=== PATIENT | female | born 1950 | race Caucasian/White ===

== ENCOUNTER → 2017-08-31 10:00 | Outpatient (CLI) | payer MEDICARE, OTHER, SELFPAY | PROVIDERS: Family Provider Family Medicine; PCP Family Medicine; Visit Provider Psychiatry & Neurology Neurology | DX: G47.33 Obstructive sleep apnea (adult) (pediatric) (principal) | CPT/HCPCS: 95806 ==

== ENCOUNTER → 2017-09-22 20:08 | Outpatient (CLI) | payer MEDICARE, OTHER, SELFPAY | PROVIDERS: Family Provider Family Medicine; PCP Family Medicine; Visit Provider Psychiatry & Neurology Neurology | DX: G47.33 Obstructive sleep apnea (adult) (pediatric) (principal) | CPT/HCPCS: 95811 ==

== ENCOUNTER → 2018-02-01 08:07 | Outpatient (CLI) | payer MEDICARE, OTHER, SELFPAY ==
[2018-02-01 13:23] LABS: Anion Gap 7 (5-15); BUN 20 mg/dL (7-18); Chloride 104 mmol/L (98-107); Cholesterol 175 mg/dL (200); Creatinine, Serum 0.87 mg/dL (0.55-1.02); EST Glomerular Filtration Rate 69 mL/min (>60); Est Glom Filt Rate - Afr Amer 84 mL/min (>60); Glucose 132 mg/dL (74-106); High Density Lipoprotein 49 mg/dL; Potassium 3.9 mmol/L (3.5-5.1); Sodium Level 140 mmol/L (136-145); Triglycerides 170 mg/dL; Very Low Density Lipoprotein 34 mg/dL (5-40)
[2018-02-02 08:35] LABS: Vitamin D,25 Hydroxy 75.7 ng/mL (29.95-100.01)
== END ==
PROVIDERS: Family Provider Family Medicine; PCP Family Medicine; Visit Provider Family Medicine
DX: I10 Essential (primary) hypertension (principal); E55.9 Vitamin D deficiency, unspecified; E11.9 Type 2 diabetes mellitus without complications
CPT/HCPCS: 36415; 80048; 80061; 82306

== ENCOUNTER → 2018-07-07 08:10 | Outpatient (CLI) | payer MEDICARE, OTHER, SELFPAY ==
--- NOTE | 2018-07-07 08:14 | BI_ITS ---
MAMMOGRAPHY - BILATERAL SCREENING REASON FOR EXAM: Female, 67 years old. Routine annual screening examination. PERTINENT HISTORY: Sister with breast cancer. Aunt with breast cancer. Palpable abnormality in the deep central lateral portion of the left breast. TECHNIQUE: Digital bilateral breast leida (3D mammographic acquisition) in the CC and MLO projections. 2-D mediolateral oblique (MLO) and craniocaudad (CC) views of both breasts were obtained. CAD: Full Field Digital Mammography with Computer Added Detection was performed. COMPARISON: Comparison is made with prior study dated January 03, 2018. FINDINGS: Breast Composition: There are scattered areas of fibroglandular density. There are no dominant masses or suspicious calcifications. No other significant abnormalities are identified. There has been no significant change since the prior study. BI/SCREENING MAMM (CAD), BILAT IMPRESSION: Stable bilateral screening mammogram. With the patient's history of a palpable abnormality in the left breast, correlation with ultrasound is recommended. ASSESSMENT CATEGORY: BIRADS Category 0: Incomplete. Need additional imaging evaluation. A letter regarding these results will be sent to the patient by the facility within 30 days. Approximately 10% of breast cancers are not detected by mammography. A normal mammogram should not delay biopsy of a clinically suspicious abnormality. [id number] Electronically Signed: Star Mccabe MD at 11:31 EST Tel [phone], Service support ,
== END ==
PROVIDERS: Family Provider Family Medicine; PCP Family Medicine; Visit Provider Family Medicine
DX: Z12.31 Encounter for screening mammogram for malignant neoplasm of breast (principal)
CPT/HCPCS: 77063; 77067

== ENCOUNTER → 2018-07-08 09:17 | Outpatient (CLI) | payer MEDICARE, OTHER, SELFPAY ==
--- NOTE | 2018-07-08 09:19 | US_ITS ---
STUDY: ULTRASOUND BREAST - LEFT REASON FOR EXAM: Female, 67 years old. Palpable lump left breast. TECHNIQUE: Axial and longitudinal images of the LEFT breast were performed with a high resolution ultrasound transducer. COMPARISON: Comparison is made with prior mammogram dated July 07, 2018. FINDINGS: LEFT Breast: There is a 1.8 cm x 1.8 cm x 0.8 cm well-defined slightly hypoechoic to isoechoic nodule at the 4:00 position in the breast at 9 cm from the nipple. This corresponds to the palpable abnormality. 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 Tissue diagnosis is recommended. US/Breast Complete Unilateral IMPRESSION: The abnormality corresponds to a 1.8 cm x 1.8 cm x 0.8 cm hypoechoic/isoechoic nodule. 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 Correlation with biopsy is recommended. ASSESSMENT CATEGORY: BIRADS Category 4: Suspicious - Biopsy Should Be Considered. A letter regarding these results will be sent to the patient by the facility within 30 days. Electronically Signed: Star Mccabe MD at 11:25 EST Tel [phone], Service support ,
== END ==
PROVIDERS: Family Provider Family Medicine; PCP Family Medicine; Referring Provider Family Medicine; Visit Provider Family Medicine
DX: N63.23 Unspecified lump in the left breast, lower outer quadrant (principal)
CPT/HCPCS: 76641

== ENCOUNTER → 2018-07-22 14:06 | Outpatient (CLI) | payer MEDICARE, OTHER, SELFPAY ==
[2018-07-15 09:54] VITALS: BMI 32.1
--- NOTE | 2018-07-22 13:00 | BRBX_PTH ---
PATIENT: VEE MAZARIEGOS LOC: [facility] U#:[id number] AGE/SX: 74/F ROOM: RE07/22/[address]: Dr. Maxwell Booth MD : 1950 BED: DIS: SPEC #: [id number] RECD: 07/22/18 14:03 STATUS: YOSSI CALISTA #: [id number] CARLENE: 07/22/18 13:[address]: Maxwell Booth DEPT: SURGICAL PATHOLOGY RECD BY: Chacorta Haley ENTERED: 07/25/18 10:15 SP TYPE: BREAST BX OTHR DR: Dr. Rodriguez Kirby MD Tissues: Left breast, NOS Procedures: Surgery Specimen Level IV HEADER OPERATION: Ultrasound guided needle core biopsy, left breast PRE-OP DIAGNOSIS: Abnormal mammogram, left breast R92.8 TISSUE SUBMITTED: Left breast biopsy ISCHEMIC TIME: 1 minute FIXATION TIME: 78 hours MICROSCOPIC DIAGNOSIS Left breast, ultrasound-guided core biopsy: Mature adipose tissue. No evidence of malignancy. AM:lynn 07/26/18 MICROSCOPIC DESCRIPTION Slides are reviewed. GROSS DESCRIPTION Received in fixative is one container labeled with the patient's name and designated left breast. The specimen consists of one elongated fragment of light may soft tissue measuring 1.5 cm in length and 0.2 cm in greatest diameter. The specimen is totally submitted in one cassette. / AM:lynn 07/25/18 TC:5 CPT: 22999
--- OUTSIDE RECORDS SUMMARY | 2018-09-26 04:34 | XMS RPT_ITS ---
:1950 Author Organization OHIP Support Name Relationship Address Phone CARO, ISRAEL Unavailable [phone] + [place] [address] MCLLUIS KASANDRA Unavailable [address] + [place] [address] R Unavailable Unavailable Unavailable GORDO ISRAEL Unavailable Unavailable + JASPREET KASANDRA Unavailable [address] + [place] [address] R Unavailable Unavailable Unavailable GORDO ISRAEL Unavailable . + [place] [address] JASPREET KASANDRA Unavailable [address] + [place] [address] R Unavailable Unavailable Unavailable CAROISRAEL VELASQUEZ Unavailable . + [place] [address] MCLEDUARDOIE, KASANDRA Unavailable [address] + [place] [address] R Unavailable Unavailable Unavailable MCLUCKIE, KASANDRA Unavailable [address] + [place] [address] R Unavailable Unavailable Unavailable MCLUCKIE, KASANDRA Unavailable [address] + [place] [address] R Unavailable Unavailable Unavailable MCLUCKIE, KASANDRA Unavailable [address] + [place] [address] R Unavailable Unavailable Unavailable MCLUCKIE, KASANDRA Unavailable [address] + [place] [address] R Unavailable Unavailable Unavailable MCLUCKIE, KASANDRA Unavailable [address] + [place] [address] R Unavailable Unavailable Unavailable Care Team Providers Name Role Phone Rodriguez Kirby Attending Unavailable Rodriguez Kirby Primary Care Unavailable Rodriguez Kirby Attending Unavailable Rodriguez Kirby Primary Care Unavailable Rodriguez Kirby Referring Unavailable Maxwell Booth Attending Unavailable Rodriguez Kirby Referring Unavailable Leobardo, Maxwell Attending Unavailable Mirta, Rodriguez Referring Unavailable Leobardo, Maxwell Attending Unavailable Leobardo, Maxwell Referring Unavailable Mirta, Rodriguez Primary Care Unavailable Leobardo, Maxwell Attending Unavailable Mirta, Rodriguez Referring Unavailable Guillermo Baxter Attending Unavailable Rodriguez Kirby Primary Care Unavailable Guillermo Baxter Attending Unavailable Mirta, Rodriguez Primary Care Unavailable Mirta, Rodriguez Attending Unavailable Mirta, Rodriguez Primary Care Unavailable PROBLEMS PROBLEMS DATE TYPE CONDITION / CODE ATTENDING STATUS SOURCE 07/29/2018 Unknown R92.8 - Other Maxwell Booth Active [place] abnormal and Community inconclusive Hospital findings on Repository diagnostic imaging of breast / R92.8(ICD-10) 07/07/2018 Unknown Z12.31 - Encounter Rodriguez Kirby for screening Community mammogram for Hospital malignant neoplasm Repository of breast / Z12.31(ICD-10) 09/22/2017 Unknown G47.33 - Eric Baxter Obstructive sleep [facility] apnea (adult) Hospital (pediatric) / Repository G47.33(ICD-10) PROCEDURES PROCEDURES No Procedure Records FoundRESULTS RESULTS SURGERY VISIT REPORT Observed: 07/29/2018 Status: F Source: [place] 8:49 AM [facility] [address] [place] [address] [address] [place] [address] OFFICE VISIT Date of Service: 07/29/18 MR#: [id number] Acct: [id number] Name: VEE MAZARIEGOS Rep #: [id number] : 1950 Provider: Maxwell Booth MD Age/Sex: 67/F Location: [facility] Status: Signed Intake Intake Visit Reasons: 1 WK F/U L BREAST BX Chief Complaint: left breast biopsy Lead Mobile Developer Required: No Is patient in pain?: No Allergies sodium pentothal Allergy (Severe, Uncoded 07/29/18 08:38) rash, quit breathing Medications aspirin 81 mg tablet,delayed release 81 mg PO DAILY 07/15/18 [History Confirmed 07/29/18] cholecalciferol (vitamin D3) 1,000 unit capsule 1,000 unit PO DAILY 07/15/18 [History Confirmed 07/29/18] flaxseed oil 1,000 mg capsule 1,000 mg PO DAILY 07/15/18 [History Confirmed 07/29/18] glucosamine sulfate 1,000 mg capsule 1,000 mg PO DAILY cap 07/15/18 [History Confirmed 07/29/18] losartan 25 mg tablet 25 mg PO DAILY 07/15/18 [History Confirmed 07/29/18] Subjective Details: Patient underwent an ultrasound-guided left needle core biopsy on 07/22/2018. The lesion was located in the left breast at the 4 o'clock position it was also actually very palpable. This came back as make sure adipose tissue negative for malignancy. The patient is still complaining of significant pain at that lump site and not directly related to the biopsy itself but continues to be uncomfortable for her particularly when she is wearing her bras. She would like to have it removed. Objective Details: Lungs: Clear to auscultation Cardiovascular: Regular rate and rhythm no murmurs gallops or rubs Neck: No JVD no lymphadenopathy no carotid bruits Breast exam on the left side shows a palpable lesion at the 4 o'clock position no signs of cellulitis or infect Assessment AND Plan Problems 1. Abnormal mammogram of left breast R92.8 Plan I have discussed above with the patient. I have recommended the patient undergo an excisional left breast biopsy. I have described the procedure to the patient. Patient has been counseled to the risks/benefits of the procedure. I have explained the risks of the surgery, including but not limited to: infection, bleeding, injury to any blood vessels/nerves, scar tissue, missing the lesion, further surgery, etc. - the patient understands and agrees to proceed. I have answered all of the patient's questions to her satisfaction and she has no further questions. Coding Level of Care Code Off vis,est,level 2 Diagnoses Abnormal mammogram of left breast R92.8 07/29/18 0849 <Electronically signed by Maxwell Booth MD> Date Maxwell Booth MD Cosigner Signature: Date (if applicable) CC: Rodriguez Kirby MD BREAST BIOPSY Observed: 07/22/2018 Status: F Source: [place] (CHOOSE SITE) 1:00 PM [facility] Patient: VEE MAZARIEGOS : 1950 (67/F) Acct Num: [id number] Phys: Maxwell Booth MD Unit Num: [id number] Loc: LABSPEC Specimen: [id number] Received: 07/22/181402 Spec Type: BREAST BX TISSUES 1 TISSUES: Left breast, NOS GROSS DESCRIPTION Received in fixative is one container labeled with the patient's name and designated left breast. The specimen consists of one elongated fragment of light may soft tissue measuring 1.5 cm in length and 0.2 cm in greatest diameter. The specimen is totally submitted in one cassette. / AM:lynn 07/25/18 TC:5 CPT: 59644 HEADER OPERATION: Ultrasound guided needle core biopsy, left breast PRE-OP DIAGNOSIS: Abnormal mammogram, left breast R92.8 TISSUE SUBMITTED: Left breast biopsy ISCHEMIC TIME: 1 minute FIXATION TIME: 78 hours MICROSCOPIC DESCRIPTION Slides are reviewed. MICROSCOPIC DIAGNOSIS Left breast, ultrasound-guided core biopsy: Mature adipose tissue. No evidence of malignancy. AM:lynn 07/26/18 Signed Noel Bender, DO 07/26/18 <signature on file> Performed By: #### PBRBX #### [facility] [place], [address] SURGERY VISIT REPORT Observed: 07/18/2018 Status: F Source: [place] 11:42 AM [facility] [address] [place] [address] OFFICE VISIT Date of Service: 07/15/18 MR#: [id number] Acct: [id number] Name: VEE MAZARIEGOS Rep #: [id number] : 1950 Provider: Maxwell Booth MD Age/Sex: 67/F Location[place] [facility] Status: Signed Intake Vital Signs07/15/18 Height 5 ft 4 in 07/15/18 Weight: 187 lb Intake Visit Reasons: CONSULT LT BREAST BIOPSY US 07/08/18 Lead Mobile Developer Required: No Is patient in pain?: No Allergies sodium pentothal Allergy (Severe, Uncoded 07/15/18 09:57) rash, quit breathing Medications aspirin 81 mg tablet,delayed release 81 mg PO DAILY 07/15/18 [History Confirmed 07/15/18] cholecalciferol (vitamin D3) 1,000 unit capsule 1,000 unit PO DAILY 07/15/18 [History Confirmed 07/15/18] flaxseed oil 1,000 mg capsule 1,000 mg PO DAILY 07/15/18 [History Confirmed 07/15/18] glucosamine sulfate 1,000 mg capsule 1,000 mg PO DAILY cap 07/15/18 [History Confirmed 07/15/18] losartan 25 mg tablet 25 mg PO DAILY 07/15/18 [History Confirmed 07/15/18] [facility] Medical History Abnormal mammogram (Acute) Arthritis (Acute) Diabetes (Acute) Hemorrhoids (Acute) Left breast lump (Acute) Sleep apnea (Acute) Thyroid disease (Acute) High blood pressure (Chronic) Surgical History History of laparoscopic cholecystectomy (Acute) History of parathyroidectomy (Acute) history thyroid lobectomy (Acute) Family History Mother Arthritis Diabetes Heart disease Hypertension CVA (cerebral vascular accident) Grandmother Arthritis Colon cancer CVA (cerebral vascular accident) Thyroid disorder Sister Arthritis Breast cancer Diabetes Hypertension Thyroid disorder Grandfather Heart disease Social History Smoking Status: Never smoker alcohol intake: current alcohol intake frequency: a few times a month substance use type: does not use HPI HPI HPI: VEE MAZARIEGOS, is a 67 F who presents to the office today for evaluation of an abnormal mammogram and ultrasound. Patient had a recent mammogram and ultrasound which showed a 1.8 x 1.8 x 0.8 cm well-defined slightly hypoechoic nodule at the 4 o'clock position in the left breast 9 cm from the nipple. They gave this a BI-RADS Category 4. ROS General General: No weight change, appetite, fatigue, colon cancer, breast cancer or weakness HEENT HEENT: No difficulty swallowing, eye injury, eye surgery, swollen glands or hoarseness Endo Endocrine: Yes thyroid disease and diabetes mellitus; no thyroid cancer, Hair loss, heat intolerance or cold intolerance Skin Skin: No rash or changing moles Breast Breast: Yes left breast lump, abnormal mammogram and abnormal US; no right breast lump, nipple discharge, breast pain or breast enlargement Musc Musculoskeletal: Yes arthritis; no back problems, rheumatoid arthritis, gout or joint pain Cardio Cardiovascular: Yes high blood pressure; no murmur, pacemaker, heart disease, atrial fibrillation, heart attack, heart stent, palpitations, shortness of breat with exertion or chest pain Psych Psychiatric: No depression, anxiety or hearing voices Resp Respiratory: No shortness of breath, Yes sleep apnea, No cough, No COPD, No asthma, No emphysema, No wheezing Gastro Gastrointestinal: No abdominal pain, No nausea or vomiting, No diarrhea, No constipation, No blood in stool, No acid reflux, Yes hemorrhoids, No ulcers, No gallbladder problem, No black,tarry stools Mp Hematologic: No blood thinners, No blood disorders, No bleeding, No anemia, No blood clots Neuro Neurologic: No system reviewed and no additional complaints, except as docu, No as per HPI, No abnormal walking, No abnormal hearing, No abnormal movements, No abnormal speech, No behavioral changes, No burning sensations, No confusion, No seizure-like activity, No unsteadiness, No dizziness, No localized weakness, No frequent falls, No headache(s), No lack of coordination, No loss of vision, No memory loss, No numbness, No other visual disturbances, No radiating pain, No restless legs, No sensory deficit, No fainting, No tingling, No tremor(s), No weakness, No other Exam HENMT Head: normal to inspection, normocephalic, atraumatic Mouth: moist mucous membranes, oropharynx normal Eyes General: appearance normal, both eyes and all related structures Sclera: sclerae normal Neck Neck: no lymphadenopathy noted, trachea midline Neck mass: No Thyroid: thyroid normal Lymphatic: no lymphadenopathy noted Chest Breast inspection: normal inspection of the breasts Breast Palpation: No nipple discharge Other: In the left breast at the 4 o'clock position approximately 9 cm from the nipple is a hard palpable nodule. There is no overlying cellulitis. It is not tender to touch. Resp Other: Respiratory Exam: Deferred Cardio Heart Sounds: no murmurs Other: Cardiac Exam: Deferred GI Other: GI Exam: Deferred Other: Rectal Exam: Deferred Extrem Other: Extremity Exam: Deferred Assessment AND Plan Problems 1. Abnormal mammogram of left breast R92.8 Plan I have discussed above with the patient. I have recommended ultrasound guided needle core breast biopsy. I have described the procedure to the patient. I have discussed with the patient that sometimes the ultrasound lesion may be artifact and is user dependent and therefore prior to undergoing the procedure, the patient will have a definitive US to ensure that the lesion is truly present and is not artifact. A marker clip will be placed to identify the location. Patient has been counseled to the risks/benefits of the procedure. I have explained the risks of the surgery, including but not limited to: infection, bleeding, injury to any blood vessels/nerves, scar tissue, missing the lesion, further surgery, etc. - the patient understands and agrees to proceed. I have answered all of the patient's questions to her satisfaction and she has no further questions. Coding Level of Care Code Off vis,new,level 3 Diagnoses Abnormal mammogram of left breast R92.8 07/18/18 1142 <Electronically signed by Maxwell Booth MD> Date Maxwell Booth MD Cosigner Signature: Date (if applicable) CC: Rodriguez Kirby MD BREAST COMPLETE Observed: 07/08/2018 Status: F Source: [place] UNILATERAL 9:19 AM [facility] Imaging Services [address] [place] [address] Breast Complete Unilateral MR#: [id number] Acct: [id number] Name: YAIRVEE TODD Rep #: [id number] : 1950 F 67 From: Star Mccabe MD PCP: Rodriguez Kriby MD Status: REG CLI Study: Breast Complete Unilateral Date of Exam: 07/08/18 Exam# [id number] Ordering Dr: Rodriguez Kirby MD STUDY: ULTRASOUND BREAST - LEFT REASON FOR EXAM: Female, 67 years old. Palpable lump left breast. TECHNIQUE: Axial and longitudinal images of the LEFT breast were performed with a high resolution ultrasound transducer. COMPARISON: Comparison is made with prior mammogram dated July 07, 2018. FINDINGS: LEFT Breast: There is a 1.8 cm x 1.8 cm x 0.8 cm well-defined slightly hypoechoic to isoechoic nodule at the 4:00 position in the breast at 9 cm from the nipple. This corresponds to the palpable abnormality. 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 Tissue diagnosis is recommended. US/Breast Complete Unilateral IMPRESSION: The abnormality corresponds to a 1.8 cm x 1.8 cm x 0.8 cm hypoechoic/isoechoic nodule. 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 Correlation with biopsy is recommended. ASSESSMENT CATEGORY: BIRADS Category 4: Suspicious - Biopsy Should Be Considered. A letter regarding these results will be sent to the patient by the facility within 30 days. Electronically Signed: Star Mccabe MD at 11:25 EST Tel [phone], Service support , CC: Rodriguez Kirby MD Customs Examiner: Signed SCREENING MAMM (CAD), Observed: 07/07/2018 Status: F Source: [place] BILAT 8:14 AM [facility] Imaging Services [address] [place] [address] SCREENING MAMM (CAD), BILAT MR#: [id number] Acct: [id number] Name: VEE MAZARIEGOS Rep #: [id number] : 1950 F 67 From: Star Mccabe MD PCP: Rodriguez Kirby MD Status: [facility] CL Study: SCREENING MAMM (CAD), BILAT Date of Exam: 07/07/18 Exam# [id number] Ordering Dr: Rodriguez Kirby MD MAMMOGRAPHY - BILATERAL SCREENING REASON FOR EXAM: Female, 67 years old. Routine annual screening examination. PERTINENT HISTORY: Sister with breast cancer. Aunt with breast cancer. Palpable abnormality in the deep central lateral portion of the left breast. TECHNIQUE: Digital bilateral breast leida (3D mammographic acquisition) in the CC and MLO projections. 2-D mediolateral oblique (MLO) and craniocaudad (CC) views of both breasts were obtained. CAD: Full Field Digital Mammography with Computer Added Detection was performed. COMPARISON: Comparison is made with prior study dated January 03, 2018. FINDINGS: Breast Composition: There are scattered areas of fibroglandular density. There are no dominant masses or suspicious calcifications. No other significant abnormalities are identified. There has been no significant change since the prior study. BI/SCREENING MAMM (CAD), BIL IMPRESSION: Stable bilateral screening mammogram. With the patient's history of a palpable abnormality in the left breast, correlation with ultrasound is recommended. ASSESSMENT CATEGORY: BIRADS Category 0: Incomplete. Need additional imaging evaluation. A letter regarding these results will be sent to the patient by the facility within 30 days. Approximately 10% of breast cancers are not detected by mammography. A normal mammogram should not delay biopsy of a clinically suspicious abnormality. [id number] Electronically Signed: Star Mccabe MD at 11:31 EST Tel [phone], Service support , CC: Rodriguez Kirby MD Customs Examiner: Signed BASIC METABOLIC Collected: 02/01/2018 Status: F Source: [place] PROFILE (BMP) 8:00 AM [facility] TYPE CODE TESTS RESULT OUT OF RANGE REFERENCE UNITS LAB L501.0100 74-106 mg/dL High GLU 132 Result Comment: Fasting Glucose result greater than or equal to 126 mg/dL suggests DIABETES MELLITUS per A.D.A. criteria. Please note revised GLUCOSE reference range effective 2017. LAB L501.1000 7-18 mg/dL High BUN 20 LAB L501.1100 0.55-1.02 mg/dL Normal CREAT,SERUM 0.87 Result Comment: The validity of the calculated GFR AND GFRAA in patients over 70 years has not been determined. Clinical correlation is essential. LAB L501.1110 >60 mL/min Normal EST GFR 69 Result Comment: Non- GFR Calc LAB L501.1115 >60 mL/min Normal EST GFR - AA 84 Result Comment: GFR Calc LAB L501.1300 10-20 RATIO High BUN/CRE 23.0 LAB L501.2200 8.5-10.1 mg/dL CA Normal 9.0 LAB L501.5300 136-145 mmol/L NA Normal 140 LAB L501.5600 3.5-5.1 mmol/L K Normal 3.9 LAB L501.5900 98-107 mmol/L CL Normal 104 LAB L501.6100 21.0-32.0 mmol/L Normal CO2 29.0 LAB L501.6200 5-15 Normal GAP 7 Performed By: #### L500.2500, L500.4100 #### [facility] [address] [place], [place], [id number] LIPID PROFILE Collected: 02/01/2018 Status: F Source: [place] 8:00 AM [facility] TYPE CODE TESTS RESULT OUT OF RANGE REFERENCE UNITS LAB L501.4900 200 mg/dL Normal CHOL 175 Result Comment: <200 mg/dL Desirable 200-240 mg/dL Borderline >240 mg/dL High Risk LAB L501.5000 mg/dL Normal TRIG 170 Result Comment: The drugs N-Acetylcysteine and Metamizole may falsely depress this assay. Serum Triglycerides Reference Interval Normal <150 mg/dL Borderline high 150 - 199 mg/dL High 200 - 499 mg/dL Very High > or = 500 mg/dL LAB L501.6400 mg/dL Normal HDL 49 Result Comment: The drugs N-Acetylcysteine and Metamizole may falsely depress this assay. Reference Range HDL <40 mg/dL Low HDL Cholesterol HDL >or= 60 mg/dL High HDL Cholesterol LAB L501.6500 0-130 mg/dL Normal LDL 92 LAB L501.6600 5-40 mg/dL Normal VLDL 34 Performed By: #### L500.2500, L500.4100 #### [facility] [address] [place], [address] VITAMIN D,25 HYDROXY Collected: 02/01/2018 Status: F Source: [place] 8:00 AM [facility] TYPE CODE TESTS RESULT OUT OF RANGE REFERENCE UNITS LAB L506.1000 29.95-100.01 ng/mL Normal Vitamin D 75.7 25-OH Result Comment: Vitamin D 25(OH) Status Range Deficiency <20 ng/mL (50nmol/L) Insuffciency 20 - 30 ng/mL (50 - 75 nmol/L) Sufficiency 30 - 100 ng/mL (75 - 250 nmol/L) Toxicity >100 ng/mL (>250 nmol/L) Performed By: #### L506.1000 #### [facility] [address] [place], [address] ALLERGIES ALLERGIES DATE TYPE / CODE NAME / CODE REACTION SEVERITY SOURCE 07/29/2018 Miscellaneous sodium rash, quit SV [place] Allergy/[id number](S pentothal breathing [facility] Repository ENCOUNTERS ENCOUNTERS ADMIT/DISCHARGE ACCOUNT ADMITTING ENCOUNTER LOCATION SOURCE NUMBER CLASS 07/29/2018/ [id number] Ambulatory BMSBuilding:B [place] [facility] 7 [facility] Repository 07/22/2018 [id number] Ambulatory [place] 3 [facility] ing:LABSPEC Repository 07/22/2018/ [id number] Ambulatory BMSBuilding:B [place] [facility] 8 [facility] Repository 07/15/2018/ [id number] Ambulatory BMSBuilding:B [place] [facility] 6 [facility] Repository 07/08/2018 [id number] Ambulatory [place] 6 [facility] ing:OPUS Repository 07/07/2018 [id number] Ambulatory [place] [facility] ing:OPBI Repository 02/01/2018 [id number] Ambulatory [place] 3 [facility] ing:BFHLAB Repository 09/22/2017 [id number] Ambulatory [place] 8 [facility] ing:SL Repository 08/31/2017 [id number] Ambulatory [place] [facility] ing:SL Repository PAYERS PAYERS ENCOUNTER GUARANTOR PAYER SUBSCRIBER SOURCE 07/29/2018 VEE PEYTON Primary VEE PEYTON [place] [id number] Insurance:MEDICARE [facility] [id number] Number: Repository [id number]: 330 [id number] [phone] () Date:2018-07-22 07/29/2018 Secondary VEE PEYTON [place] Insurance:MUTUAL OF GRAFFDOB: [facility] Number: [id number] Hospital [id number] Repository Date:4185[place]39[place], [place] [address]SK: 07/29/2018 Tertiary NOT GIVENUNK [place] Insurance:SELF PAY [facility] Number: Effective Repository Date:2018-07-26 07/22/2018 VEE PEYTON Primary VEE PEYTON [place] [id number] Insurance:MEDICARE GRAFFDOB: [facility] FELISHA PLUNIT PART A [facility] [id number] Number: Repository [id number]: 330 [id number] [phone] () Date:2018-07-22 07/22/2018 Secondary VEE PEYTON [place] Insurance:MUTUAL OF GRAFFDOB: [facility] Number: [id number] Hospital [id number] Repository Date:9153-71-42TUYNLR [place], [place] [address]DJ: 07/22/2018 Tertiary NOT GIVENUNK [place] Insurance:SELF PAY [facility] Number: Effective Repository Date:2018-07-22 07/22/2018 VEE PEYTON Primary VEE PEYTON [place] [id number] Insurance:MEDICARE GRAFFDOB: Community FELISHA PLUNIT PART A [facility] [id number] Number: Repository [id number]: [phone] [id number] [phone] () Date:2018-07-15 07/22/2018 Secondary VEE PEYTON [place] Insurance:MUTUAL OF GRAFFDOB: [facility] Number: [id number] Hospital [id number] Repository Date:8617-45-23OGNMGC [place], [place] [address]ZJ: 07/22/2018 Tertiary NOT GIVENUNK [place] Insurance:SELF PAY [facility] Number: Effective Repository Date:2018-07-22 07/15/2018 VEE PEYTON Primary VEE PEYTON [place] [id number] Insurance:MEDICARE GRAFFDOB: Community FELISHA PLUNIT PART A [facility] [id number] Number: Repository [id number]: 330 [id number] [phone] () Date:2018-07-13 07/15/2018 Secondary VEE PEYTON [place] Insurance:MUTUAL OF GRAFFDOB: [facility] Number: [id number] [facility] [id number] Repository Date:1492-11[place], [place] [address]PM: 07/15/2018 Tertiary NOT GIVENUNK [place] Insurance:SELF PAY [facility] Number: Effective Repository Date:2018-07-13 07/08/2018 VEE PEYTON Primary VEE PEYTON [place] [id number] Insurance:MEDICARE GRAFFDOB: Community FELISHA PLUNIT PART A [facility] [id number] Number: Repository [id number]: [phone] [id number] [phone] () Date:2018-07-07 07/08/2018 Secondary VEE PEYTON [place] Insurance:MUTUAL OF GRAFFDOB: [facility] Number: [id number] Hospital [id number] Repository Date:5237-31-40FWOYUL [place], [place] [address]CV: 07/08/2018 Tertiary NOT GIVENUNK [place] Insurance:SELF PAY [facility] Number: Effective Repository Date:2018-07-07 07/07/2018 VEE PEYTON Primary VEE PEYTON [place] [id number] Insurance:MEDICARE GRAFFDOB: Community FELISHA PLUNIT PART A [facility] [id number], [place] Number: Repository [id number]: [phone] [id number] [phone] () Date:2018-05-02 07/07/2018 Secondary VEE PEYTON [place] Insurance:MUTUAL OF GRAFFDOB: [facility] Number: [id number] Hospital [id number] Repository Date:6470-85-50WKYKXP OF BIG [place], [place] [address]RA: 07/07/2018 Tertiary NOT GIVENUNK Jayden Insurance:SELF PAY [facility] Number: Effective Repository Date:2018-05-02 02/01/2018 VEE PEYTON Primary VEE PEYTON Jayden [id number] Insurance:MEDICARE GRAFFDOB: Community FELISHA PLUNIT PART A [facility] [id number], [place] Number: Repository [id number]: [phone] [id number] [phone] () Date:2018-02-01 02/01/2018 Secondary VEE PEYTON Jayden Insurance:MUTUAL OF GRAFFDOB: [facility] Number: [id number] [facility] [id number] Repository Date:[id number] [place], [place] [address]RO: 02/01/2018 Tertiary NOT GIVENUNK Jayden Insurance:SELF PAY [facility] Number: Effective Repository Date:2018-02-01 09/22/2017 L PEYTON Primary L PEYTON Jayden [id number] Insurance:MEDICARE GRAFFDOB: Community [place]ELISHA [place] [facility] [id number] Number: Repository [id number]: [phone] [id number] [phone] () Date:2017-09-03 09/22/2017 Secondary L PEYTON Jayden Insurance:MUTUAL OF GRAFFDOB: [facility] Number: [id number] Hospital [id number] Repository Date:0288-13-12LAAUYI [place], [place] [address]WZ: 09/22/2017 Tertiary NOT GIVENUNK Jayden Insurance:SELF PAY [facility] Hospital Number: Effective Repository Date:2017-09-03 08/31/2017 Vee C [id number] Primary Vee C GraffDOB: Jayden FELISHA PLUNIT Insurance:MEDICARE [id number] PART A [facility] [id number]: [phone]) Number: Repository [phone] () [id number] Date:2017-08-27 08/31/2017 Secondary Vee C GraffDOB: [place] Insurance:MUTUAL OF [id number] [id number] Repository Date:[id number] [place], [place] [address]LY: 08/31/2017 Tertiary NOT GIVENUNK Jayden Insurance:SELF PAY [facility] Number: Effective Repository Date:2017-08-27
== END ==
PROVIDERS: Family Provider Family Medicine; PCP Family Medicine; Referring Provider Surgery; Visit Provider Surgery
DX: R92.8 Other abnormal and inconclusive findings on diagnostic imaging of breast (principal)
CPT/HCPCS: 88305

== ENCOUNTER 2018-08-18 05:57 | Day surgery (SDC) | payer MEDICARE, OTHER, SELFPAY ==
[2018-07-15 09:54] VITALS: BMI 32.1
[2018-08-18 06:43] VITALS: BP 137/83; PULSE 72; RESP 16; TEMP 37.2; O2SAT 95; BMI 31.8
[2018-08-18 07:11] LABS: Bedside Glucose 162 mg/dL (70-110)
[2018-08-18] MEDS: Cefazolin 2 GM in 0.9% Normal Saline 100 ML IV (07:44)
--- NOTE | 2018-08-18 07:55 | PCM.OPRPT ---
Problem List (1) Left breast mass Status: Acute Report of Operation Date of Procedure: 08/18/18 Pre-Operative Diagnosis: Left breast mass Post-Operative Diagnosis: SAME Surgery/Procedure Performed:: Excisional left breast biopsy Type of Anesthesia:: Local MAC Anesthesiologist: Hang Echevarria Specimen's removed: Left breast tissue Estimated Blood Loss (mL): < 25 CC Description of Procedure: Patient was brought into the operating room. Placed in the supine position with her arms extended. Under excellent MAC anesthetic left breast was sterilely prepped and draped in usual fashion. Mass was palpated in the lower outer quadrant of the breast. Local was injected. Incision was made. Dissection was carried down in the mass which was fatty in nature was removed in 2 separate pieces. Use electrocautery for good hemostasis. I brought the wound together with subcu of 2-0 Vicryl deep dermals with 3-0 Vicryl running 4-0 Monocryl Dermabond was applied sterile dressings were applied and the patient tolerated the procedure well. - Admit VTE Documentation VTE Present on Admission: No VTE Mechan Device Prophylaxis: SCD's VTE Pharm Prophylaxis ordered?: No Reason prophylaxis not ordered:: Treatment Not Indicated
--- NOTE | 2018-08-18 07:56 | DCINST_ITS ---
Discharge Diet: No Restrictions Discharge Activity: May Not Drive - for 2-3 days or while taking narcotic pain meds. May shower in (days): 1 Lifting Restrictions: 10 pounds for 1 week. Call your doctor if your incision/area has: Continuous Slow Oozing, Sudden In creased Bleeding Call your doctor if you observe: Fever of 101 or Higher Suture Line Care: Avoid Pulling/Pushing, Avoid Pinching/Bending Remove Dressing in (days):: 1 - Remove bulky dressing tomorrow. May leave any opsite dressing for 3-4 days. Keep dressing in place until your follow-up appointment. Additional Dressing/Incision Instructions:: Remove bulky dressing tomorrow. May leave any opsite dressing for 3-4 days. Keep dressing in place until your follow-up appointment. Allergies/Adverse Reactions: Allergies sodium pentothal Allergy (Severe, Uncoded 08/09/18 08:49) rash, quit breathing Medications to take at Discharge aspirin 81 mg tablet,delayed release 81 mg PO DAILY 07/15/18 cholecalciferol (vitamin D3) 1,000 unit capsule 5,000 unit PO DAILY 07/15/18 flaxseed oil 1,000 mg capsule 1,000 mg PO DAILY 07/15/18 glucosamine sulfate 1,000 mg capsule 1,000 mg PO DAILY cap 07/15/18 losartan 25 mg tablet 25 mg PO DAILY 07/15/18 Primary Care Physician: Rodriguez Kirby MD [Primary Care Provider] -
--- NOTE | 2018-08-18 08:00 | MASS_PTH ---
PATIENT: VEE MAZARIEGOS LOC: [facility] – [place] U#:[id number] AGE/SX: 67/F ROOM: RE08/18/[address]: Dr. Maxwell Booth MD : 1950 BED: DIS: 08/18/2018 SPEC #: [id number] RECD: 08/18/18 09:12 STATUS: YOSSI REVielka #: [id number] CARLENE: 08/18/18 08:[address]: Maxwell Booth DEPT: SURGICAL PATHOLOGY RECD BY: Ethan Salmeron ENTERED: 08/18/18 13:16 SP TYPE: Mass OTHR DR: Dr. Rodriguez Kirby MD Tissues: Left breast, NOS Procedures: Surgery Specimen Level IV HEADER OPERATION: Left excisional breast biopsy PRE-OP DIAGNOSIS: Abnormal mammogram left breast TISSUE SUBMITTED: Left breast mass MICROSCOPIC DIAGNOSIS Left breast mass, excisional biopsy: Mature adipose tissue. Changes of previous biopsy. Rare benign ductal elements. See comment. AM:lynn 08/22/18 COMMENT The specimen primarily consists of mature adipose tissue. Clinical correlation is suggested. Case has been reviewed in consultation with Dr. Birch who concurs with the above diagnosis. IDC:SJ MICROSCOPIC DESCRIPTION Slides are reviewed. GROSS DESCRIPTION Received in fixative is one container labeled with the patient's name and designated left breast mass. The specimen consists of a piece of may-yellow nodular tissue measuring 2.5 x 1.5 x 1.5 cm. This piece is inked, serially sectioned and reveals yellow adipose cut surfaces without area of hemorrhage, necrosis or cystic degeneration. Also present in the container is a second piece of fibroadipose tissue measuring 3.5 x 2 x 1 cm. Sections reveal yellow adipose cut surfaces without area of hemorrhage, necrosis or cystic degeneration. The entire specimen is submitted in six cassettes as follows: 1-3 - first piece, 46?-?second piece. / ELMO:lynn 08/19/18 TC:1 CPT: 77763
[2018-08-18] MEDS: Bupivacaine Mpf 0.5% 30 ML VIAL (08:04)
[2018-08-18 08:35] VITALS: BP 116/73; BP 129/74; BP 137/83; PULSE 74; RESP 18; TEMP 36.2; O2SAT 95
[2018-08-18 08:45] VITALS: BP 129/73; BP 137/83; PULSE 70; RESP 18; O2SAT 94
[2018-08-18 08:50] VITALS: BP 137/69; BP 137/83; PULSE 72; RESP 18; O2SAT 96
[2018-08-18 08:56] VITALS: BP 137/83; BP 145/81; RESP 18; TEMP 36.5; O2SAT 95
[2018-08-18 09:36] VITALS: BP 137/83
== END 2018-08-18 09:00 | disposition home or self-care (01) ==
LOC: SDC 05:57 → AC 05:58
PROVIDERS: Family Provider Family Medicine; PCP Family Medicine; Referring Provider Surgery; Visit Provider Surgery
PROC: (CPT 19120; principal; 2018-08-18 07:45)
DX: N63.23 Unspecified lump in the left breast, lower outer quadrant (principal); I10 Essential (primary) hypertension; G47.30 Sleep apnea, unspecified; Z79.82 Long term (current) use of aspirin; Z79.899 Other long term (current) drug therapy
CPT/HCPCS: 19120; 82962; 88305; J7120

== ENCOUNTER → 2018-12-26 | Outpatient (CLI) | payer MEDICARE, OTHER, SELFPAY ==
[2018-12-26 12:37] LABS: Absolute Lymphocyte Count 1.99 X10^3/ul (0.83-4.51); Absolute Neutrophil Count 3.5 X10^3/uL (2.0-7.7); Basophil# 0.02 X10^3/uL; Basophil% 0.3 % (0-1); Eosinophil# 0.15 X10^3/uL; Eosinophils% 2.5 % (0-5); Hemoglobin 14.2 g/dl (12.0-15.0); Lymphocyte # 1.99 X10^3/ul (4.0); Lymphocyte % 32.6 % (19-41); Mean Corpuscular Hgb 27.6 pg (27.0-32.0); Mean Corpuscular Volume 83.5 fL (81-99); Mean Platelet Vol. 9.7 fl (6.2-12.0); Monocyte# 0.44 X10^3/uL; Monocyte% 7.2 % (0-10); Neutrophil # 3.47 X10^3/uL (2.7-7.7); Neutrophil % 56.7 % (47-70); Platelet Count 314 K/mm3 (150-450); RBC Distribution Width CV 13.9 % (11.6-14.6); RBC Distribution Width SD 42.2 fl (35.1-43.9); Red Blood Count 5.15 M/mm3 (4.2-5.4); White Blood Count 6.1 K/mm3 (4.4-11.0)
[2018-12-26 12:42] LABS: Microalbumin,Random Urine 70.2 mg/L (NO RANGE EST.)
[2018-12-26 12:47] LABS: POSITIVE COUNT NO; POSITIVE DIFFERENTIAL NO; POSITIVE MORPHOLOGY NO; Vitamin D,25 Hydroxy 72.4 ng/mL (29.95-100.01)
[2018-12-26 12:49] LABS: Anion Gap 6 (5-15); BUN 17 mg/dL (7-18); BUN/Creat Ratio 20.8 RATIO (10-20); Calcium,Total 8.9 mg/dL (8.5-10.1); Chloride 106 mmol/L (98-107); Creatinine, Serum 0.82 mg/dL (0.55-1.02); EST Glomerular Filtration Rate 74 mL/min (>60); Est Glom Filt Rate - Afr Amer 90 mL/min (>60); Glucose 130 mg/dL (74-106); Potassium 3.7 mmol/L (3.5-5.1); Sodium Level 138 mmol/L (136-145); Thyroid Stim Hormone (TSH) 3.27 uIU/mL (0.358-3.74)
== END | disposition home or self-care (01) ==
LOC: BFHLAB 10:21
PROVIDERS: Family Provider Family Medicine; PCP Family Medicine; Visit Provider Family Medicine
DX: E11.9 Type 2 diabetes mellitus without complications (principal); I10 Essential (primary) hypertension; R94.6 Abnormal results of thyroid function studies; E55.9 Vitamin D deficiency, unspecified
CPT/HCPCS: 36415; 80048; 82043; 82306; 82570; 84443; 85025

== ENCOUNTER → 2019-01-11 | Outpatient (CLI) | payer MEDICARE, OTHER, SELFPAY ==
[2019-01-11 12:23] LABS: Anion Gap 8 (5-15); BUN 17 mg/dL (7-18); BUN/Creat Ratio 20.2 RATIO (10-20); Chloride 107 mmol/L (98-107); Creatinine, Serum 0.84 mg/dL (0.55-1.02); EST Glomerular Filtration Rate 72 mL/min (>60); Est Glom Filt Rate - Afr Amer 87 mL/min (>60); Glucose 164 mg/dL (74-106); Potassium 3.9 mmol/L (3.5-5.1); Sodium Level 140 mmol/L (136-145)
== END | disposition home or self-care (01) ==
LOC: BFHLAB 09:02
PROVIDERS: Family Provider Family Medicine; PCP Family Medicine; Visit Provider Family Medicine
DX: I10 Essential (primary) hypertension (principal)
CPT/HCPCS: 36415; 80048

== ENCOUNTER → 2019-11-10 | Outpatient (CLI) | payer MEDICARE, OTHER, SELFPAY ==
--- NOTE | 2019-11-10 09:24 | EKG12_ITS ---
Test Reason : PRE OP Blood Pressure : / mmHG Vent. Rate : 065 BPM Atrial Rate : 065 BPM P-R Int : 136 ms QRS Dur : 116 ms QT Int : 414 ms P-R-T Axes : 046 -51 025 degrees QTc Int : 430 ms Normal sinus rhythm Left anterior fascicular block Left ventricular hypertrophy with QRS widening Abnormal ECG Confirmed by DARRIUS KATZ, JACK ([id number]), photography editor BONNIE MCCLELLAND ([id number]) on 11/13/2019 1:32:11 PM Referred By: Radha Milton Confirmed By:JACK RIZO MD
[2019-11-10 10:00] LABS: Absolute Lymphocyte Count 2.24 X10^3/uL (0.83-4.51); Absolute Neutrophil Count 3.8 X10^3/uL (2.0-7.7); Basophil# 0.04 X10^3/uL; Basophil% 0.6 % (0-1); Eosinophil# 0.16 X10^3/uL; Eosinophils% 2.4 % (0-5); Hemoglobin 14.6 g/dL (12.0-15.0); Lymphocyte # 2.24 X10^3/ul (4.0); Lymphocyte % 32.9 % (19-41); Mean Corp Hgb Conc 32.4 g/dL (32-36); Mean Corpuscular Hgb 28.3 pg (27.0-32.0); Mean Corpuscular Volume 87.2 fL (81-99); Mean Platelet Vol. 9.2 fl (6.2-12.0); Monocyte# 0.53 X10^3/uL; Monocyte% 7.8 % (0-10); NRBC Flagged by Analyzer 0 % (0-5); Neutrophil # 3.77 X10^3/uL (2.7-7.7); Neutrophil % 55.4 % (47-70); Platelet Count 293 K/mm3 (150-450); RBC Distribution Width CV 13.2 % (11.6-14.6); Red Blood Count 5.16 M/mm3 (4.2-5.4); White Blood Count 6.8 K/mm3 (4.4-11.0)
[2019-11-10 10:16] LABS: Anion Gap 7 (5-15); BUN 23 mg/dL (7-18); BUN/Creat Ratio 28.7 RATIO (10-20); Calcium,Total 9.3 mg/dL (8.5-10.1); Chloride 106 mmol/L (98-107); EST Glomerular Filtration Rate 76 mL/min (>60); Est Glom Filt Rate - Afr Amer 92 mL/min (>60); Glucose 156 mg/dL (74-106); Potassium 3.9 mmol/L (3.5-5.1); Sodium Level 140 mmol/L (136-145)
[2019-11-10 10:28] LABS: Hemoglobin A1c 8.1 % (4.2-6.3)
== END | disposition home or self-care (01) ==
LOC: LAB 09:15
PROVIDERS: PCP Family Medicine; Referring Provider Registered Nurse; Visit Provider Registered Nurse
DX: Z01.810 Encounter for preprocedural cardiovascular examination (principal); E11.9 Type 2 diabetes mellitus without complications
CPT/HCPCS: 36415; 80048; 83036; 85025; 93005

== ENCOUNTER → 2019-11-30 | Outpatient (CLI) | payer MEDICARE, OTHER, SELFPAY ==
[2019-11-15 15:09] VITALS: BMI 30.2
--- NOTE | 2019-11-30 06:53 | ECHOD_ITS ---
Reason For Study: ABNORMAL EKG Procedure This was a 2D Doppler, Color Flow transthoracic echocardiogram. The exam was of adequate technical quality. Exam performed in department. Left Ventricle Normal LV size. Left ventricular systolic function is normal. The estimated ejection fraction is 65 %. Diastolic function is indeterminate. No regional wall motion abnormalities noted. Right Ventricle Normal RV size. Normal systolic function. Atria The left atrium is mildly enlarged. Normal right atrium. No doppler evidence for ASD. Mitral Valve There is no mitral annular calcification. Normal mitral valve. Trivial mitral valve insufficiency. Tricuspid Valve Normal tricuspid valve. Trivial tricuspid valve insufficiency. Aortic Valve Trisinus/trileaflet aortic valve. Normal aortic valve. Pulmonic Valve The pulmonic valve is not well visualized. Trivial pulmonic valve insufficiency. Great Vessels Normal sized aortic root. Pericardium/Pleural No pericardial effusion. MMode/2D Measurements & Calculations LVIDd: 5.4 cm IVSd: 0.95 cm Ao root diam: 2.9 cm LVIDs: 4.0 cm LVPWd: 0.97 cm RVDd: 2.9 cm FS: 25.8 % LAV(MOD-bp): 65.0 ml LA A4 area: 20.3 cm2 LA dimension(2D): 3.6 cm LAV(MOD-bp) Indexed: 35.0 ml/m2 LAV(MOD-sp2): 63.4 ml LAV(MOD-sp4): 63.4 ml RA A4 area: 12.0 cm2 Time Measurements MV dec time: 0.17 sec Doppler Measurements & Calculations MV E max tyson: 81.7 cm/sec Lat Peak E' Tyson: 7.3 cm/sec Med Peak E' Tyson: 10.0 cm/sec MV A max tyson: 90.3 cm/sec E/E' lat: 11.2 E/E' med: 8.2 MV E/A: 0.90 Ao V2 max: 161.4 cm/sec LV V1 max: 131.5 cm/sec PA V2 max: 107.4 cm/sec Ao max P.4 mmHg LV V1 max P.9 mmHg Ao V2 mean: 120.2 cm/sec LV V1 mean P.6 mmHg Ao mean P.2 mmHg LV V1 mean: 90.4 cm/sec Ao V2 VTI: 34.8 cm LV V1 VTI: 25.9 cm Interpretation Summary Left ventricular systolic function is normal. The estimated ejection fraction is 65 %. The left atrium is mildly enlarged. Trivial mitral valve insufficiency. Trivial tricuspid valve insufficiency. Trivial pulmonic valve insufficiency. Diastolic function is indeterminate. Ordering Physician: Frank^Adonay^^^ Referring Physician: Rodriguez Kirby Performed By: Aisha Truong, HEMAL, RVT
--- NOTE | 2019-11-30 09:33 | STRESSREP ---
Stress Test Report Date: 11-30-2019 Procedure: Pharmacologic stress nuclear imaging study Indications: Abnormal ECG; preoperative cardiovascular evaluation Consent: Per the patient Procedure: The patient underwent pharmacologic (Regadenoson) evaluation with a peak heart rate of 108 beats per minute (71 %predicted maximal heart rate) and a peak blood pressure of 170/82 mmHg. The baseline ECG demonstrated normal sinus rhythm: Poor R wave progression. The peak pharmacologic ECG demonstrated no obvious ECG changes. There was a rare PVC in recovery. There was no complaint of chest discomfort during pharmacologic infusion or recovery. The examination was discontinued secondary to completion of protocol. Impression: 1. Pharmacologic (Regadenoson) evaluation 2. Peak pharmacologic ECG with no obvious ECG changes. 3. There was a rare PVC during recovery. 4. Nuclear images pending Myocardial perfusion imaging study: Technique: The patient was injected with 12.0 millicuries of technetium 99m Cardiolite and subsequently rest SPECT Cardiolite nuclear imaging was obtained in the horizontal long, vertical long, and short axis views. The patient underwent pharmacologic (Regadenoson) evaluation with a peak heart rate of 108 beats per minute (71 % percent predicted maximal heart rate) and a peak blood pressure of 170/82 mmHg. The patient was injected with 36.0 millicuries of technetium 99m Cardiolite and subsequently stress SPECT Cardiolite nuclear imaging was obtained in the horizontal long, vertical long, and short axis views. A gated Cardiolite study at peak stress was obtained. Interpretation: Rest and stress SPECT Cardiolite nuclear imaging status post realignment, normalization, and attenuation correction demonstrate relative uniform tracer uptake and myocardial perfusion appearing within normal limits. There is end systolic thickening and brightening. The gated Cardiolite study demonstrates myocardial thickening and inward wall motion. The reported LVEF is 66 %. Impression: 1. Rest and stress SPECT Cardiolite nuclear imaging demonstrate relative uniform tracer uptake and myocardial perfusion appearing within normal limits. 2. The gated Cardiolite study reports an LVEF of 66 %. This note was generated with [employer] software. It may contain incorrect words, spelling, and punctuation that were not noted in checking the note before signing.
== END | disposition home or self-care (01) ==
LOC: CVS 06:53
PROVIDERS: PCP Family Medicine; Referring Provider Internal Medicine Cardiovascular Disease; Visit Provider Internal Medicine Cardiovascular Disease
DX: Z01.810 Encounter for preprocedural cardiovascular examination (principal); R94.31 Abnormal electrocardiogram [ECG] [EKG]; I10 Essential (primary) hypertension
CPT/HCPCS: 78452; 93017; 93306; A9500; A4216; J2785

== ENCOUNTER → 2019-12-10 10:20 | Outpatient (CLI) | payer MEDICARE, OTHER, SELFPAY ==
[2019-11-15 15:09] VITALS: BMI 30.2
== END ==
PROVIDERS: PCP Family Medicine; Visit Provider Registered Nurse
DX: Z11.59 Encounter for screening for other viral diseases (principal)
CPT/HCPCS: 87635; G2023; U0003

== ENCOUNTER → 2019-12-27 | Outpatient (CLI) | payer MEDICARE, OTHER, SELFPAY ==
[2019-11-15 15:09] VITALS: BMI 30.2
[2019-12-27 12:43] LABS: Absolute Lymphocyte Count 2.05 X10^3/uL (0.83-4.51); Absolute Neutrophil Count 3.4 X10^3/uL (2.0-7.7); Basophil# 0.04 X10^3/uL; Basophil% 0.6 % (0-1); Eosinophil# 0.18 X10^3/uL; Eosinophils% 2.8 % (0-5); Hematocrit 45.8 % (37-47); Hemoglobin 14.7 g/dL (12.0-15.0); Lymphocyte # 2.05 X10^3/ul (4.0); Lymphocyte % 32.4 % (19-41); Mean Corp Hgb Conc 32.1 g/dL (32-36); Mean Corpuscular Hgb 28.2 pg (27.0-32.0); Mean Corpuscular Volume 87.9 fL (81-99); Mean Platelet Vol. 9.2 fl (6.2-12.0); Monocyte# 0.55 X10^3/uL; Monocyte% 8.7 % (0-10); NRBC Flagged by Analyzer 0 % (0-5); Neutrophil # 3.44 X10^3/uL (2.7-7.7); Neutrophil % 54.6 % (47-70); Platelet Count 300 K/mm3 (150-450); RBC Distribution Width CV 13.3 % (11.6-14.6); RBC Distribution Width SD 42.9 fl (35.1-43.9); Red Blood Count 5.21 M/mm3 (4.2-5.4); White Blood Count 6.3 K/mm3 (4.4-11.0)
[2019-12-27 12:59] LABS: Vitamin D,25 Hydroxy 87.4 ng/mL
[2019-12-27 13:01] LABS: ALB/GLOB Ratio 0.9 RATIO (0.9-2.4); AST(SGOT) 12 U/L (15-37); Alanine Aminotransfer ALT/SGPT 27 U/L (13-56); Albumin, Serum 3.8 g/dL (3.2-5.0); Alkaline Phosphatase 74 U/L (45-117); Anion Gap 7 (5-15); BUN 21 mg/dL (7-18); BUN/Creat Ratio 24.7 RATIO (10-20); Calcium,Total 9.1 mg/dL (8.5-10.1); Chloride 104 mmol/L (98-107); Cholesterol 194 mg/dL (200); Creatinine, Serum 0.85 mg/dL (0.55-1.02); EST Glomerular Filtration Rate 71 mL/min (>60); Est Glom Filt Rate - Afr Amer 86 mL/min (>60); Globulin 4.1 g/dL (2.2-4.2); Glucose 146 mg/dL (74-106); High Density Lipoprotein 50 mg/dL; Potassium 4.3 mmol/L (3.5-5.1); Protein, Total 7.9 g/dL (6.4-8.2); Sodium Level 140 mmol/L (136-145); Triglycerides 178 mg/dL; Very Low Density Lipoprotein 36 mg/dL (5-40)
[2019-12-27 13:05] LABS: Hemoglobin A1c 6.7 % (3.8-5.6)
== END | disposition home or self-care (01) ==
LOC: BFHLAB 08:34
PROVIDERS: PCP Family Medicine; Visit Provider Family Medicine
DX: E11.9 Type 2 diabetes mellitus without complications (principal); I10 Essential (primary) hypertension; E55.9 Vitamin D deficiency, unspecified; R94.6 Abnormal results of thyroid function studies
CPT/HCPCS: 36415; 80053; 80061; 82306; 83036; 84443; 85025

== ENCOUNTER → 2020-01-16 | Outpatient (CLI) | payer MEDICARE, OTHER, SELFPAY ==
[2019-11-15 15:09] VITALS: BMI 30.2
--- NOTE | 2020-01-16 12:06 | BI_ITS ---
MAMMOGRAPHY - BILATERAL SCREENING REASON FOR EXAM: Female, 69 years old. Routine annual screening examination. PERTINENT HISTORY: Sister with breast cancer. Aunt with breast cancer. TECHNIQUE: Digital bilateral breast santiago (3D mammographic acquisition) in the CC and MLO projections. 2-D mediolateral oblique (MLO) and craniocaudad (CC) views of both breasts were obtained. CAD: Full Field Digital Mammography with Computer Added Detection was performed. COMPARISON: Comparison is made with prior study dated July 07, 2018. FINDINGS: Breast Composition: There are scattered areas of fibroglandular density. There are no dominant masses or suspicious calcifications. No other significant abnormalities are identified. There has been no significant change since the prior study. BI/SCREEN MAMM (CAD) W/SANTIAGO BILAT IMPRESSION: Stable bilateral screening mammogram. Yearly follow-up mammogram recommended. (A) ASSESSMENT CATEGORY: BIRADS Category 1: Negative. A letter regarding these results will be sent to the patient by the facility within 30 days. Approximately 10% of breast cancers are not detected by mammography. A normal mammogram should not delay biopsy of a clinically suspicious abnormality. [id number] Electronically Signed: Star Mccabe, at 13:02 EDT , Service support ,
== END | disposition home or self-care (01) ==
LOC: OPBI 12:05
PROVIDERS: PCP Family Medicine; Referring Provider Family Medicine; Visit Provider Family Medicine
DX: Z12.31 Encounter for screening mammogram for malignant neoplasm of breast (principal)
CPT/HCPCS: 77063; 77067

== ENCOUNTER → 2020-08-07 10:26 | Outpatient (CLI) | payer MEDICARE, OTHER, SELFPAY ==
[2019-11-15 15:09] VITALS: BMI 30.2
[2020-08-07 12:12] LABS: Absolute Neutrophil Count 3.9 X10^3/uL (2.0-7.7); Basophil# 0.04 X10^3/uL; Basophil% 0.6 % (0-1); Eosinophil# 0.15 X10^3/uL; Eosinophils% 2.1 % (0-5); Hematocrit 43.7 % (37-47); Lymphocyte % 33.7 % (19-41); Mean Corpuscular Hgb 27.2 pg (27.0-32.0); Mean Platelet Vol. 9.2 fl (6.2-12.0); Monocyte# 0.58 X10^3/uL; Monocyte% 8.1 % (0-10); NRBC Flagged by Analyzer 0 % (0-5); Neutrophil % 54.8 % (47-70); Platelet Count 315 K/mm3 (150-450); RBC Distribution Width CV 13.2 % (11.6-14.6); RBC Distribution Width SD 41.3 fl (35.1-43.9); Red Blood Count 5.14 M/mm3 (4.2-5.4); White Blood Count 7.1 K/mm3 (4.4-11.0)
[2020-08-07 12:29] LABS: Vitamin D,25 Hydroxy 53.4 ng/mL
[2020-08-07 12:35] LABS: T4 Free Direct 0.89 ng/dL (0.76-1.46); Thyroid Stim Hormone (TSH) 2.83 uIU/mL (0.358-3.74)
== END ==
PROVIDERS: PCP Family Medicine; Visit Provider Family Medicine
DX: E11.9 Type 2 diabetes mellitus without complications (principal); E55.9 Vitamin D deficiency, unspecified; R94.6 Abnormal results of thyroid function studies
CPT/HCPCS: 36415; 82306; 84439; 84443; 85025

== ENCOUNTER → 2020-10-18 13:38 | Outpatient (CLI) | payer MEDICARE, OTHER, SELFPAY ==
[2019-11-15 15:09] VITALS: BMI 30.2
[2020-10-18 15:24] LABS: Absolute Lymphocyte Count 2.39 X10^3/uL (0.83-4.51); Absolute Neutrophil Count 5.8 X10^3/uL (2.0-7.7); Basophil# 0.05 X10^3/uL; Basophil% 0.5 % (0-1); Eosinophil# 0.15 X10^3/uL; Eosinophils% 1.6 % (0-5); Hematocrit 45.2 % (37-47); Hemoglobin 14.3 g/dL (12.0-15.0); Lymphocyte # 2.39 X10^3/ul (0.83-4.51); Lymphocyte % 26.2 % (19-41); Mean Corp Hgb Conc 31.6 g/dL (32-36); Mean Corpuscular Hgb 27.3 pg (27.0-32.0); Mean Corpuscular Volume 86.4 fL (81-99); Mean Platelet Vol. 9.2 fl (6.2-12.0); Monocyte# 0.63 X10^3/uL; Monocyte% 6.9 % (0-10); NRBC Flagged by Analyzer 0 % (0-5); Neutrophil # 5.82 X10^3/uL (2.7-7.7); Neutrophil % 63.9 % (47-70); Platelet Count 322 K/mm3 (150-450); RBC Distribution Width CV 13.2 % (11.6-14.6); RBC Distribution Width SD 41.1 fl (35.1-43.9); Red Blood Count 5.23 M/mm3 (4.2-5.4); White Blood Count 9.1 K/mm3 (4.4-11.0)
[2020-10-18 15:54] LABS: Anion Gap 6 (5-15); BUN 20 mg/dL (7-18); BUN/Creat Ratio 24.8 RATIO (10-20); Calcium,Total 9.4 mg/dL (8.5-10.1); Chloride 104 mmol/L (98-107); Creatinine, Serum 0.81 mg/dL (0.55-1.02); EST Glomerular Filtration Rate 75 mL/min (>60); Est Glom Filt Rate - Afr Amer 90 mL/min (>60); Glucose 113 mg/dL (74-106); Potassium 3.9 mmol/L (3.5-5.1); Sodium Level 139 mmol/L (136-145)
== END ==
PROVIDERS: PCP Family Medicine; Referring Provider Family Medicine; Visit Provider Family Medicine
DX: E11.9 Type 2 diabetes mellitus without complications (principal); I10 Essential (primary) hypertension
CPT/HCPCS: 36415; 80048; 85025

== ENCOUNTER → 2020-11-11 15:30 | Outpatient (CLI) | payer MEDICARE, OTHER, SELFPAY ==
[2019-11-15 15:09] VITALS: BMI 30.2
== END ==
PROVIDERS: PCP Family Medicine; Visit Provider Physician Assistant
DX: Z11.52 Encounter for screening for COVID-19 (principal)
CPT/HCPCS: 87635; C9803; U0002

== ENCOUNTER 2021-01-22 10:00 | Outpatient (RCR) | payer MEDICARE, OTHER, SELFPAY ==
[2020-12-26 15:11] VITALS: BMI 30.6
== END 2021-02-01 23:59 ==
LOC: DC 10:00
PROVIDERS: PCP Family Medicine; Visit Provider Family Medicine
DX: E11.9 Type 2 diabetes mellitus without complications (principal); E66.9 Obesity, unspecified; Z68.30 Body mass index [BMI] 30.0-30.9, adult
CPT/HCPCS: 97802; G0108

== ENCOUNTER 2021-02-17 10:00 | Outpatient (RCR) | payer MEDICARE, OTHER, SELFPAY ==
[2020-12-26 15:11] VITALS: BMI 30.6
== END 2021-03-04 23:59 ==
LOC: DC 10:00
PROVIDERS: PCP Family Medicine; Visit Provider Family Medicine
DX: E11.9 Type 2 diabetes mellitus without complications (principal); E66.9 Obesity, unspecified; Z68.30 Body mass index [BMI] 30.0-30.9, adult
CPT/HCPCS: 97803; G0108

== ENCOUNTER → 2021-02-18 10:13 | Outpatient (CLI) | payer MEDICARE, OTHER, SELFPAY ==
[2020-12-26 15:11] VITALS: BMI 30.6
--- NOTE | 2021-02-18 10:16 | BI_ITS ---
MAMMOGRAPHY - BILATERAL SCREENING REASON FOR EXAM: Female, 70 years old. Routine annual screening examination. PERTINENT HISTORY: Sister with breast cancer. Aunt with breast cancer. TECHNIQUE: Digital bilateral breast santiago (3D mammographic acquisition) in the CC and MLO projections. 2-D mediolateral oblique (MLO) and craniocaudad (CC) views of both breasts were obtained. CAD: Full Field Digital Mammography with Computer Added Detection was performed. COMPARISON: Comparison is made with prior study dated 01/16/2020 and 07/07/2018. FINDINGS: Breast Composition: There are scattered areas of fibroglandular density. There are no dominant masses or suspicious calcifications. Small benign-appearing bilateral axillary lymph nodes. No other significant abnormalities are identified. There has been no significant change since the prior study. BI/SCRN MAMM (CAD)W/SANTIAGO BILAT IMPRESSION: Stable bilateral screening mammogram. Yearly follow-up mammogram recommended. (A) ASSESSMENT CATEGORY: BIRADS Category 2: Benign. A letter regarding these results will be sent to the patient by the facility within 30 days. Approximately 10% of breast cancers are not detected by mammography. A normal mammogram should not delay biopsy of a clinically suspicious abnormality. [id number] Electronically Signed: Star Mccabe MD at 11:08 EDT , Service support ,
== END ==
PROVIDERS: PCP Family Medicine; Referring Provider Family Medicine; Visit Provider Family Medicine
DX: Z12.31 Encounter for screening mammogram for malignant neoplasm of breast (principal)
CPT/HCPCS: 77063; 77067

== ENCOUNTER 2021-04-01 10:00 | Outpatient (RCR) | payer MEDICARE, OTHER, SELFPAY ==
[2021-03-05 00:20] VITALS: BMI 30.6
== END 2021-04-03 23:59 ==
LOC: DC 10:00
PROVIDERS: PCP Family Medicine; Visit Provider Family Medicine
DX: E11.9 Type 2 diabetes mellitus without complications (principal); E66.9 Obesity, unspecified; Z68.30 Body mass index [BMI] 30.0-30.9, adult
CPT/HCPCS: 97803; G0109

== ENCOUNTER 2021-04-10 10:39 | Outpatient (RCR) | payer MEDICARE, OTHER, SELFPAY ==
[2021-04-04 00:15] VITALS: BMI 30.6
== END 2021-05-04 23:59 ==
LOC: DC 10:39
PROVIDERS: PCP Family Medicine; Visit Provider Family Medicine
DX: E11.9 Type 2 diabetes mellitus without complications (principal); E66.9 Obesity, unspecified; Z68.30 Body mass index [BMI] 30.0-30.9, adult
CPT/HCPCS: G0109

== ENCOUNTER 2021-05-08 09:40 | Outpatient (RCR) | payer MEDICARE, OTHER, SELFPAY ==
[2021-05-05 00:11] VITALS: BMI 30.6
== END 2021-06-03 23:59 ==
LOC: DC 09:40
PROVIDERS: PCP Family Medicine; Visit Provider Family Medicine
DX: E11.9 Type 2 diabetes mellitus without complications (principal); E66.9 Obesity, unspecified; Z68.30 Body mass index [BMI] 30.0-30.9, adult
CPT/HCPCS: G0109

== ENCOUNTER 2021-06-05 10:56 | Outpatient (RCR) | payer MEDICARE, OTHER, SELFPAY ==
[2021-06-04 00:16] VITALS: BMI 30.6
== END 2021-07-04 23:59 ==
LOC: DC 10:56
PROVIDERS: PCP Family Medicine; Visit Provider Family Medicine
DX: E11.9 Type 2 diabetes mellitus without complications (principal); E66.9 Obesity, unspecified; Z68.30 Body mass index [BMI] 30.0-30.9, adult
CPT/HCPCS: G0109

== ENCOUNTER → 2022-03-19 | Outpatient (CLI) | payer MEDICARE, OTHER, SELFPAY ==
--- NOTE | 2022-03-19 08:59 | BI_ITS ---
MAMMOGRAPHY - BILATERAL SCREENING REASON FOR EXAM: Female, 71 years old. Routine annual screening examination. PERTINENT HISTORY: Sisters with breast cancer. Aunt with breast cancer. Prior left excisional breast biopsy. TECHNIQUE: Digital bilateral breast santiago (3D mammographic acquisition) in the CC and MLO projections. 2-D mediolateral oblique (MLO) and craniocaudad (CC) views of both breasts were obtained. CAD: Full Field Digital Mammography with Computer Added Detection was performed. COMPARISON: Comparison is made with prior study 02/18/2021 and 01/16/2020. FINDINGS: Breast Composition: There are scattered areas of fibroglandular density. 9 mm well-defined nodule in the deep upper lateral aspect of the left breast. Correlation with breast ultrasound is recommended for further evaluation. No other significant abnormalities are identified. BI/SCRN MAMM (CAD)W/SANTIAGO BILAT IMPRESSION: 9 mm well-defined nodule in the upper deep lateral aspect of the left breast. Correlation with ultrasound is recommended. ASSESSMENT CATEGORY: BIRADS Category 0: Incomplete. Need additional imaging evaluation. A letter regarding these results will be sent to the patient by the facility within 30 days. Approximately 10% of breast cancers are not detected by mammography. A normal mammogram should not delay biopsy of a clinically suspicious abnormality. [id number] Electronically Signed: Star Mccabe MD at 10:08 EDT ,
== END | disposition home or self-care (01) ==
LOC: OPBI 08:57
PROVIDERS: PCP Family Medicine; Referring Provider Family Medicine; Visit Provider Family Medicine
DX: Z12.31 Encounter for screening mammogram for malignant neoplasm of breast (principal); Z80.3 Family history of malignant neoplasm of breast
CPT/HCPCS: 77063; 77067

== ENCOUNTER → 2022-03-20 | Outpatient (CLI) | payer MEDICARE, OTHER, SELFPAY ==
--- NOTE | 2022-03-20 10:51 | US_ITS ---
STUDY: ULTRASOUND BREAST - LEFT REASON FOR EXAM: Female, 71 years old. Abnormal screening mammogram. TECHNIQUE: Axial and longitudinal images of the LEFT breast were performed with a high resolution ultrasound transducer. # OF IMAGES: 11 COMPARISON: Comparison is made with prior mammogram dated 03/19/2022. FINDINGS: LEFT Breast: The mammographic abnormality corresponds to an 8 mm x 10 mm x 4 mm well-defined hypoechoic nodule at the 3 o''clock position of the breast at 8 cm from nipple. A hilum is seen within it suggestive of a small lymph node. US/Breast Limited Unilateral IMPRESSION: The mammographic abnormality corresponds to an 8 mm x 10 mm x 4 mm well-defined hypoechoic nodule suggestive of a lymph node. ASSESSMENT CATEGORY: BIRADS Category 2: Benign. A letter regarding these results will be sent to the patient by the facility within 30 days. Electronically Signed: Star Mccabe MD at 11:23 EDT ,
== END | disposition home or self-care (01) ==
LOC: OPUS 10:50
PROVIDERS: PCP Family Medicine; Referring Provider Family Medicine; Visit Provider Family Medicine
DX: R92.2 Inconclusive mammogram (principal); N63.20 Unspecified lump in the left breast, unspecified quadrant
CPT/HCPCS: 76642

== ENCOUNTER → 2022-05-15 | Outpatient (CLI) | payer MEDICARE, OTHER, SELFPAY ==
[2022-05-15 11:51] LABS: Absolute Lymphocyte Count 2.08 X10^3/uL (0.83-4.51); Absolute Neutrophil Count 3.1 X10^3/uL (2.0-7.7); Basophil# 0.04 X10^3/uL; Basophil% 0.7 % (0-1); Eosinophil# 0.14 X10^3/uL; Eosinophils% 2.4 % (0-5); Hematocrit 44.2 % (37-47); Hemoglobin 14.1 g/dL (12.0-15.0); Lymphocyte # 2.08 X10^3/ul (0.83-4.51); Mean Corp Hgb Conc 31.9 g/dL (32-36); Mean Corpuscular Hgb 27.7 pg (27.0-32.0); Mean Corpuscular Volume 86.8 fL (81-99); Mean Platelet Vol. 9.6 fl (6.2-12.0); Monocyte# 0.53 X10^3/uL; Monocyte% 8.9 % (0-10); NRBC Flagged by Analyzer 0 % (0-5); Neutrophil # 3.11 X10^3/uL (2.7-7.7); Neutrophil % 52.3 % (47-70); Platelet Count 304 K/mm3 (150-450); RBC Distribution Width CV 13.2 % (11.6-14.6); RBC Distribution Width SD 41.5 fl (35.1-43.9); Red Blood Count 5.09 M/mm3 (4.2-5.4); White Blood Count 5.9 K/mm3 (4.4-11.0)
[2022-05-15 12:12] LABS: Vitamin D,25 Hydroxy 65.6 ng/mL
[2022-05-15 12:21] LABS: Microalbumin:Creatinine Ratio 375.7 mg/g CRE (<30 mg/g CRE)
[2022-05-15 12:37] LABS: ALB/GLOB Ratio 0.9 RATIO (0.9-2.4); AST(SGOT) 19 U/L (15-37); Alanine Aminotransfer ALT/SGPT 29 U/L (13-56); Albumin, Serum 3.7 g/dL (3.2-5.0); Alkaline Phosphatase 90 U/L (45-117); Anion Gap 8 (5-15); BUN 19 mg/dL (7-18); BUN/Creat Ratio 24.2 RATIO (10-20); Calcium,Total 8.9 mg/dL (8.5-10.1); Chloride 105 mmol/L (98-107); Cholesterol 194 mg/dL (200); Creatinine, Serum 0.79 mg/dL (0.55-1.02); EST Glomerular Filtration Rate 77 mL/min (>60); Est Glom Filt Rate - Afr Amer 93 mL/min (>60); Globulin 3.9 g/dL (2.2-4.2); Glucose 155 mg/dL (74-106); High Density Lipoprotein 57 mg/dL; Potassium 3.8 mmol/L (3.5-5.1); Protein, Total 7.6 g/dL (6.4-8.2); Sodium Level 139 mmol/L (136-145); Thyroid Stim Hormone (TSH) 2.83 uIU/mL (0.358-3.74); Triglycerides 128 mg/dL; Very Low Density Lipoprotein 26 mg/dL (5-40)
== END | disposition home or self-care (01) ==
LOC: BFHLAB 09:18
PROVIDERS: PCP Family Medicine; Visit Provider Family Medicine
DX: Z00.00 Encounter for general adult medical examination without abnormal findings (principal); E11.65 Type 2 diabetes mellitus with hyperglycemia; I10 Essential (primary) hypertension; R94.6 Abnormal results of thyroid function studies; E55.9 Vitamin D deficiency, unspecified
CPT/HCPCS: 36415; 80053; 80061; 82043; 82306; 82570; 84443; 85025

== ENCOUNTER → 2023-04-05 | Outpatient (CLI) | payer MEDICARE, OTHER, SELFPAY ==
--- NOTE | 2023-04-05 11:56 | BI_ITS ---
MAMMOGRAPHY - BILATERAL SCREENING REASON FOR EXAM: Female, 72 years old. Routine annual screening examination. PERTINENT HISTORY: Sister with breast cancer. Aunt with breast cancer. TECHNIQUE: Digital bilateral breast santiago (3D mammographic acquisition) in the CC and MLO projections. 2-D mediolateral oblique (MLO) and craniocaudad (CC) views of both breasts were obtained. CAD: Full Field Digital Mammography with Computer Added Detection was performed. COMPARISON: Comparison is made with prior study dated March 19, 2022 and February 19, 2020. FINDINGS: Breast Composition: There are scattered areas of fibroglandular density. There are no dominant masses or suspicious calcifications. Stable 1 cm well-defined nodule in the upper outer aspect of the left breast. This is suggestive of a small lymph node. No other significant abnormalities are identified. There has been no significant change since the prior study. BI/SCRN MAMM (CAD)W/SANTIAGO BILAT IMPRESSION: Stable bilateral screening mammogram. Yearly follow-up mammogram recommended. (A) ASSESSMENT CATEGORY: BIRADS Category 2: Benign. A letter regarding these results will be sent to the patient by the facility within 30 days. Approximately 10% of breast cancers are not detected by mammography. A normal mammogram should not delay biopsy of a clinically suspicious abnormality. [id number] Electronically Signed: Star Mccabe MD at 13:29 EDT ,
== END | disposition home or self-care (01) ==
LOC: OPBI 11:55
PROVIDERS: PCP Family Medicine; Visit Provider Family Medicine
DX: Z12.31 Encounter for screening mammogram for malignant neoplasm of breast (principal); Z80.3 Family history of malignant neoplasm of breast
CPT/HCPCS: 77063; 77067

== ENCOUNTER → 2023-05-21 | Outpatient (CLI) | payer MEDICARE, OTHER, SELFPAY ==
--- NOTE | 2023-05-21 12:32 | CT_ITS ---
CT LEFT LOWER EXTREMITY WITH 3-D IMAGING CLINICAL INDICATION: PRE OP. WAKO protocol. TECHNIQUE: Axial CT images of the LEFT lower extremity was performed without IV contrast material. Coronal and sagittal reformats were provided. RADIATION DOSAGE (If Supplied By Facility): CTDIvol = ( 18.76 ) mGy, DLP = ( 1184.58 ) mGycm COMPARISON: No relevant prior comparison study available FINDINGS: Bones: Multiple axial tomographic images of the left hip, left knee and ankle were obtained. Coronal and sagittal reconstruction were obtained as well. Imaging of the left hip joint was performed. There is an 8.5 mm sclerotic focus along the inferior aspect of the acetabulum suggests a very small bone island. The joint space is well-maintained. Imaging of the knee joint was obtained. There is a marked degree of joint space narrowing involving the medial compartment of the knee joint with a degenerative spur formation along the medial aspect of the distal femur and medial tibial plateau. There is also evidence of a bony osteophyte on the anterior aspect of the distal femur. Mild degree of osteoarthritis of the patellofemoral joint. Imaging of the ankle joint was obtained. There is evidence of a small plantar spur as well as a spur at the incision of the Achilles tendon. Soft Tissues: The deep soft tissue structures are unremarkable. The superficial soft tissues are unremarkable without evidence of edema, hematoma, or foreign body. CT/Extremity Lower without Contra IMPRESSION: Marked degree of joint space narrowing and osteoarthritis involving the medial compartment of knee joint with degenerative changes of the patellofemoral joint. Electronically Signed: Star Mccabe MD at 15:12 EST ,
--- NOTE | 2023-05-21 12:33 | EKG12_ITS ---
Test Reason : PRE OP Blood Pressure : / mmHG Vent. Rate : 073 BPM Atrial Rate : 073 BPM P-R Int : 134 ms QRS Dur : 120 ms QT Int : 408 ms P-R-T Axes : 037 -50 059 degrees QTc Int : 449 ms Normal sinus rhythm Left anterior fascicular block Left ventricular hypertrophy with QRS widening Abnormal ECG Confirmed by DARRIUS KATZ, JACK ([id number]), index editor TWYLA MARAVILLA ([id number]) on 05/26/2023 12:20:30 PM Referred By: Hipolito Cody Confirmed By:JACK RIZO MD
[2023-05-21 13:45] LABS: Absolute Lymphocyte Count 1.98 X10^3/uL (0.83-4.51); Absolute Neutrophil Count 3.5 X10^3/uL (2.0-7.7); Basophil# 0.03 X10^3/uL; Basophil% 0.5 % (0-1); Eosinophils% 4.7 % (0-5); Hematocrit 41.3 % (37-47); Hemoglobin 13.3 g/dL (12.0-15.0); Lymphocyte # 1.98 X10^3/ul (0.83-4.51); Lymphocyte % 31.3 % (19-41); Mean Corp Hgb Conc 32.2 g/dL (32-36); Mean Corpuscular Hgb 27.5 pg (27.0-32.0); Mean Corpuscular Volume 85.5 fL (81-99); Mean Platelet Vol. 9.3 fl (6.2-12.0); Monocyte# 0.49 X10^3/uL; Monocyte% 7.7 % (0-10); NRBC Flagged by Analyzer 0 % (0-5); Neutrophil # 3.47 X10^3/uL (2.7-7.7); Neutrophil % 54.9 % (47-70); Platelet Count 302 K/mm3 (150-450); RBC Distribution Width CV 13.2 % (11.6-14.6); RBC Distribution Width SD 40.5 fl (35.1-43.9); Red Blood Count 4.83 M/mm3 (4.2-5.4); White Blood Count 6.3 K/mm3 (4.4-11.0)
[2023-05-21 14:07] LABS: Albumin, Serum 3.5 g/dL (3.2-5.0); Anion Gap 7 (5-15); BUN 19 mg/dL (7-18); BUN/Creat Ratio 20.6 RATIO (10-20); Calcium,Total 8.4 mg/dL (8.5-10.1); Chloride 108 mmol/L (98-107); Creatinine, Serum 0.92 mg/dL (0.55-1.02); EST Glomerular Filtration Rate 64 mL/min (>60); Est Glom Filt Rate - Afr Amer 77 mL/min (>60); Glucose 235 mg/dL (74-106); Potassium 3.8 mmol/L (3.5-5.1); Sodium Level 140 mmol/L (136-145)
== END | disposition home or self-care (01) ==
PROVIDERS: PCP Family Medicine; Referring Provider Physician Assistant; Visit Provider Physician Assistant
DX: Z01.818 Encounter for other preprocedural examination (principal); Z01.810 Encounter for preprocedural cardiovascular examination; M17.12 Unilateral primary osteoarthritis, left knee
CPT/HCPCS: 36415; 73700; 80048; 82040; 85025; 93005

== ENCOUNTER → 2023-06-16 | Outpatient (CLI) | payer MEDICARE, OTHER, SELFPAY ==
--- NOTE | 2023-06-16 | KNEE_PTH ---
PATIENT: VEE MAZARIEGOS LOC: [facility]IN [facility] U#:[id number] AGE/SX: 72/F ROOM: RE06/16/[address]: Dr. Yemi Cleveland DO : 1950 BED: DIS: 06/16/2023 SPEC #: [id number] RECD: 06/16/23 08:56 STATUS: YOSSI REQ #: [id number] CARLENE: 06/16/23 00:[address]: Yemi Cleveland DEPT: SURGICAL PATHOLOGY RECD BY: Misha Baker ENTERED: 06/17/23 08:57 SP TYPE: TOTAL KNEE OTHR DR: Dr. Elke Grewal MD [facility] Tissues: Knee, NOS Procedures: Decalcification bone/plaque Surgery Specimen Level IV HEADER OPERATION: Left robotic assisted total knee arthroplasty PRE-OP DIAGNOSIS: Unilateral primary osteoarthritis left knee TISSUE SUBMITTED: Left knee bone and tissue MICROSCOPIC DIAGNOSIS Bone and soft tissue, left knee, total knee replacement/resection: Pieces of bone with degenerative osteoarthritic changes. Fibroadipose tissue, fibroconnective tissue and reactive synovial tissue. ELMO:lynn 06/23/2023 MICROSCOPIC DESCRIPTION Slides are reviewed. GROSS DESCRIPTION Received is one container designated bone and soft tissue left knee. The specimen consists of multiple fragments of may-yellow bone measuring in aggregate 9.0 x 9.0 x 4.5 cm. Also in the specimen container are multiple fragments of yellow-white soft tissue measuring in aggregate 8.0 x 8.0 x 3.0 cm. A number of bony fragments contain articular surfaces consistent with tibial plateau and femoral condyle and displaying prominent osteophyte formation, eburnation and bone erosion. Associate Professor sections are submitted in two cassettes as follows: 1 - soft tissue, 2 - bone after decalcification. / ELMO:lynn 06/17/2023 TC:5 CPT: 09452, 26432
== END | disposition home or self-care (01) ==
PROVIDERS: PCP Family Medicine; Visit Provider Orthopaedic Surgery
DX: M17.12 Unilateral primary osteoarthritis, left knee (principal)
CPT/HCPCS: 88305; 88311

== ENCOUNTER → 2023-07-28 | Outpatient (CLI) | payer MEDICARE, OTHER, SELFPAY ==
--- OUTSIDE RECORDS SUMMARY | 2023-07-28 06:17 | XMS RPT_ITS | CCD ---
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 Work Phone: Medications Current Medications Medication Drug Class(es) Dates Sig (Normalized) Sig (Original) benoxinate hydrochloride 4 mg/ml / fluorescein sodium 2.5 mg/ml ophthalmic solution (1 source) Diagnostic Dye Start: 10-30-2022 End: 10-31-2022 fluorescein-benoxi boubacar 0.25-0.4 % 1 Drop (FLURESS) Completed/Discontinued Medications Medication Drug Class(es) Dates Sig (Normalized) Sig (Original) aspirin 81 mg delayed release oral tablet (1 source) Platelet Aggregation Inhibitor, Nonsteroidal Anti-inflammatory Drug Start: 12-03-2008 aspirin(ECOTRIN LOW STRENGTH 81 MG TAB) Take one (1) tablet daily. 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 Menopausal disorders (1 source) Atrophic vaginitis; Translations: [Postmenopausal atrophic vaginitis] Onset: 10-15-2008 10-15-2008 Chronic Past or Other Problems Problem Classification Problem Date Documented Da te Episodic/Chronic Benign neoplasm of uterus (1 source) Uterine leiomyoma; Translations: [Leiomyoma of uterus, unspecified] Onset: 10-15-2008 10-15-2008 Episodic Results Test Name Value Interpretation Reference Range Facil ity Encounters Encounter Date Encounter Type Care Provider Facility Start: 10-30-2022 End: 10-30-2022 Patient encounter procedure Chacorta Rodarte MD Work Phone: [facility] Procedures Date Procedure Procedure Detail Performing Clinician Start: 10-30-2022 Ophthalmic us dx cor hiwot pachymetry uni/bi Chacorta Rodarte MD Work Phone: Start: 10-30-2022 Visual field xm uni/ bi w/interp extended exam Chacorta Rodarte MD Work Phone: Start: 02-02-2011 Mammography Chacorta ruiz MD Work Phone: Plan of Treatment Date Care Activity Detail Author Start: 07-05-2022 ADVANCE DIRECTIVE DISCUSSION ADVANCE DIRECTIVE DISCUSSION [facility] Start: 07-05-2022 DEPRESSION ASSESSMENT DEPRESSION ASS ESSMENT [facility] Start: 11-28-2016 BONE DENSITY BONE DENSITY [facility] Start: 11-28-2016 PNEUMOCOCCAL: 65+ (1 - PCV) PNEUMOCOCCAL: 65+ (1 - PCV) [facility] Start: 02-03-[address] [facility] Start: 11-28-2001 SHINGRIX VACCINE (1 of 2) SHINGRIX V ACCINE (1 of 2) [facility] Start: 11-28-1996 COLOGUARD (FIT-DNA) COLOGUARD (FIT-D NA) [facility] Start: 11-28-[address] [facility] Start: 11-28-1996 COLORECTAL CANCER SCREENING COLORECTAL CANCER SCREENING [facility] Start: 11-28-[address] COLONOGRAPHY [facility] Start: 11-28-1996 DIABETES SCREEN DIABETES SCREEN [facility] Start: 11-28-1996 FECAL OCCULT BLOOD FECAL OCCULT BLOO D [facility] Start: 11-28-1996 LIPID SCREEN LIPID SCREEN [facility] Start: 11-28-1996 SIGMOIDOSCOPY SIGMOIDOSCOPY [facility] Start: 11-28-1970 Urine microalbumin profile DTAP,TDAP ,TD (1 - Tdap) [facility] Start: 11-28-1969 HEPATITIS C SCREENING HEPATITIS C SC YOGESH [facility] Payers Date Payer Category Payer Private Health Insurance [employer] A ETNA MEDICARE SUPPLEMENT [id number] 2020-Present [phone] [address] [address] [place] [address] Indemnity [id number] 2016 Medicare MEDICARE MEDICAR E A AND B [id number] 2016-Present [phone] [place] [address] Medicare [id number] Social History Date Type Detail Facility [facility]: [facility] Start: 07-24-2022 Tobacco use and exposure Smoke less tobacco non-user [facility] Start: 10-30-2022 Alcohol intake Current drinke r of alcohol (finding) [facility] Start: 1950 Sex Assigned At Not on file [facility] History of Present illness Narrative 10-30-2022 Chacorta Rodarte MD - 10/30/2022 1:49 PM EDT Note Date & Type Note Facility 10-30-2022 History of Presen t illness Narrative (H40.053) Ocular hypertension, bilateral Lower intraocular pressure today compared to prior. Low Primary open angle glaucoma (POAG) risk: good visual field and average corneal thickness will monitor an a yearly basis. Discussed findings, plan and answered questions. Follow-up in July 2023 for complete and as needed and sooner as needed for other problems or concerns. I have confirmed and edited as necessary the relevant ophthalmic history, ROS, and the neuro exam findings as obtained by others. I have seen and examined Rosalinda Plunkett I have discussed the case and the management of this patient's care with the Resident/Fellow, if applicable. I also have reviewed and agree with the assessment and plan as stated above and agree with all of its relevant components. Chacorta Rodarte MD documented in this encounter [facility] Progress note 05-09-2021 Note Date & Type Note Facility 05-09-2021 Note HNO ID: [id number] Author: Chacorta Rodarte MD Service: ? Author Type: Physician Type: Progress Notes Filed: 05/09/2021 1:01 PM Note Text: (E11.9) Type 2 diabetes mellitus without complication, without long-term current use of insulin (HCC) (H25.13) Nuclear sclerosis of both eyes (H52.7) Refractive error No evident diabetic retinopathy or Diabetic macular edema. Continue follow-up with primary care physician to manage diabetes. Cataract- Not visually significant. Observe. Glasses prescription given. Discussed findings, plan and answered questions. Follow-up as needed if ongoing or future concerns and 1 year. I have confirmed and edited as necessary the relevant ophthalmic history, ROS, and the neuro exam findings as obtained by others. I have seen and examined Rosalinda Plunkett I have discussed the case and the management of this patient's care with the Resident/Fellow, if applicable. I also have reviewed and agree with the assessment and plan as stated above and agree with all of its relevant components. Chacorta Rodarte MD [facility] History of Past illness Narrative 10-15-2008 Note Date & Type Note Facility documented as of this encounter (statuses as of 10/30/2022) [facility] Evaluation note Note Date & Type Note Facility documented in this encounter [facility] Summary Purpose Family History No Family History Records Found Advance Directives No Advanced Directives Records Found Medications Administered Section Active Administered Medications - up to 3 most recent administrations Medication Order MAR Action Action Date Dose Rate Site fluorescein-benoxinate 0.25-0.4 % 1 Drop (FLURESS) 1 Drop, BOTH EYES, DIRECTED, Starting on 10/30/22 at 1230, Until 10/31/22 at 0029, Administer for applanation tonometry. In the event of a Fluress shortage, administer 1 drop of Sadie-Fluor into both eyes as directed for applanation tonometry., [facility] MED ORDERS Given 10/30/2022 12:30 PM EDT 1 Drop Additional Source Comments INFORMATION SOURCE (unrecogn ized section and content) Source Comments (unrecognize d section and content) In the event this informatio n is protected by the Federal Confidentiality of Alcohol and Drug Abuse Patient Records regulations: The Federal rules restrict any use of the information to criminally investigate or prosecute any alcohol or drug abuse patient.[facility] Reason for Visit (unrecogniz ed section and content) Care Teams (unrecognized sec tion and content) FOR RECORDS PERTAINING TO PATIENTS WHO ARE OR HAVE BEEN ENROLLED IN A CHEMICAL DEPENDENCY/SUBSTANCEABUSE PROGRAM, SOME INFORMATION MAY BE OMITTED. This clinical summary was aggregated from multiple sources. Caution should be exercised in using it in the provision of clinical care. This summary normalizes information from multiple sources, and as a consequence, information in this document may materially change the coding, format and clinical context of patient data. In addition, data may be omitted in some cases. CLINICAL DECISIONS SHOULD BE BASED ON THE PRIMARY CLINICAL RECORDS. [facility]. provides no warranty or guarantee of the accuracy or completeness of information in this document.
[2023-07-28 07:52] LABS: Cholesterol 167 mg/dL (200); High Density Lipoprotein 60 mg/dL; Triglycerides 189 mg/dL; Very Low Density Lipoprotein 38 mg/dL (5-40)
== END | disposition home or self-care (01) ==
PROVIDERS: PCP Family Medicine; Referring Provider Family Medicine; Visit Provider Family Medicine
DX: E11.9 Type 2 diabetes mellitus without complications (principal)
CPT/HCPCS: 36415; 80061; 82043; 82570

== ENCOUNTER 2024-03-01 06:52 | Day surgery (SDC) | payer MEDICARE, OTHER, SELFPAY ==
[2024-03-01] VITALS (9 sets, daily range): BP systolic 118–174; BP diastolic 57–95; PULSE 54–72; RESP 16–18; TEMP 36.5–37.3; O2SAT 97–100; BMI 28.3
--- NOTE | 2024-03-01 | IMM_PTH ---
PATIENT: VEE MAZARIEGOS LOC: EN U#:[id number] AGE/SX: 73/F ROOM: RE03/01/[address]: Dr. Zainab Jay MD : 1950 BED: DIS: 03/01/2024 SPEC #: [id number] RECD: 03/02/24 11:22 STATUS: YOSSI REQ #: [id number] CARLENE: 03/01/24 00:[address]: Zainab Jay DEPT: IMMUNOHISTOCHEMISTRY RECD BY: Hasmukh Long ENTERED: 03/02/24 11:23 SP TYPE: IMMUNO OTHR DR: Dr. Elke Grewal MD Tissues: B - Rectum, NOS Procedures: SMA (add) CD31 (add) CD34 (add) CK8 (add) DESMIN (add) KI-67 (add) Vimentin (add) Pankeratin (initial) S-100 (add) PHYSICIAN & INSTITUTION [place] [id number] SPECIMEN INFORMATION: Tissue Source: B- Rectal polyp #2 Clinical Info: Encounter for screening for malignant neoplasm of colon Specimen Number: [id number] [facility] code: [id number] METHODOLOGY: Deparaffinized sections of prefer/formalin-fixed tissue or PAP/DQ stained slides are incubated with monoclonal/polyclonal antibodies/oligonucleotide probes. Localization is made via biotin free immunoperoxidase method. Appropriate controls are performed and reacted as expected. Results on target cell population are indicated in the following table: RESULTS: ANTIBODY / CLONE RESULT Block B AE1-3 (AE1/AE3/PCK26) negative CK8 (75bowiW76) negative Vimentin (V9) positive CD31 (GARETH/70A) negative CD34 (QBEnd-10) positive Actin (1A4) positive, focal Desmin (CE-R-11) positive, focal S-100 (4C4.9) positive Ki-67 (30-9) positive, very low These tests were developed and their performance characteristics determined by [facility]. They may not have been cleared or approved by the U.S. Food and Drug Administration. The FDA has determined that such clearance or approval is not necessary. The above immunohistochemical/dualISH markers are ordered and reviewed by the Pathologist. INTERPRETATION: B. Rectal polyp #2, polypectomy: Consistent with submucosal neuroma. ELMO/ 03/03/2024
[2024-03-01] MEDS: Lactated Ringers 1,000 ML 15 ML IV (07:13)
--- NOTE | 2024-03-01 07:28 | PCM.PRE.AN2 ---
ASA Classification* ASA Classification ASA Classification: 2 Assessment & Plan Anesthesia* Anesthesia Assessment Anesthesia Assessment: Discussed sedation and/or anesthesia options, risks, benefits, and alternatives with patient/parents/legal guardian/POA. Questions invited. The patient/parents/legal guardian/POA seems to understand and agrees to proceed with anesthesia plan. Reviewed the physical assessment, medical history, allergy history and patient home medications list prior to surgery/procedure/anesthetic and documented any changes. Performed airway and anesthesia risk assessments. Anesthesia Type Anesthesia Type: MAC Anesthesia Focused Assessment* Temperature: 98.1 F Pulse Rate: 64 Respiratory Rate: 16 Pulse Ox: 100 Airway Assessment Mouth opens: >3 cm Mallampati Score: II Focused Labs Anesthesia Preop lab: CBC WBC 6.3 K/mm3 (4.4-11.0) 05/21/23 12:52 RBC 4.83 M/mm3 (4.2-5.4) 05/21/23 12:52 Hgb 13.3 g/dL (12.0-15.0) 05/21/23 12:52 Hct 41.3 % (37-47) 05/21/23 12:52 Plt Count 302 K/mm3 (150-450) 05/21/23 12:52 CHEMISTRY Potassium 3.8 mmol/L (3.5-5.1) 05/21/23 12:52 Sodium 140 mmol/L (136-145) 05/21/23 12:52 BUN 19 mg/dL (7-18) H 05/21/23 12:52 Creatinine 0.92 mg/dL (0.55-1.02) 05/21/23 12:52 Glucose 235 mg/dL (74-106) H 05/21/23 12:52 POC Glucose 162 mg/dL (70-110) H 08/18/18 06:47 TSH 2.83 uIU/mL (0.358-3.74) 05/15/22 09:19 COAG Pre-Assessment Diagnosis/Proposed Procedure Planned Operative Procedure(s): COLONOSCOPY-OA Anesthesia History 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 When Was Last Pacemaker Check QUESTION #4 FULL TEXT: You/Your Family Experience fever (hyperthermia) with Anesthesia Last Oral Intake Last Oral intake: Last Oral Intake NPO since 04:00 03/01/24 07:06 Meds taken in AM with sips of Yes 03/01/24 07:06 water? Meds patient instructed to losartan 03/01/24 07:06 take am of surgery PONV PONV - aviation technical systems specialist: PONV - aviation technical systems specialist Female Yes 02/28/24 08:45 HX of Motion Sickness No 02/28/24 08:45 HX of N/V After Surgery No 02/28/24 08:45 Non-Smoker Yes 02/28/24 08:45 Duration of Surgery greater No 02/28/24 08:45 than 60 minutes Number of Risk Factors 2 02/28/24 08:45 PONV Score Moderate Risk 02/28/24 08:45 Height & Weight Height & Weight: Anesthesia: Height & Weight Height 5 ft 4 in 03/01/24 07:06 Weight: 75 kg 03/01/24 07:06 Body Mass Index (BMI) 28.3 03/01/24 07:06 Respiratory Assessment Respiratory Assessment - aviation technical systems specialist: Respiratory Tract Infection Hx - aviation technical systems specialist Hx Respiratory Tract Infection No 02/28/24 08:45 STOP Sleep Apnea STOP Sleep Apnea - aviation technical systems specialist: STOP Sleep Apnea - aviation technical systems specialist Hx Hypertension Yes: CONTROLLED ON MED 02/28/24 08:45 Hx Sleep Apnea Yes 02/28/24 08:45 CPAP Yes 02/28/24 08:45 BIPAP No 02/28/24 08:45 Do you snore loudly (louder than talking or can be heard Do you often feel tired/ fatigued/ sleepy during daytime? Has anyone observed you stop breathing during sleep? STOP Results Positive 02/28/24 08:45 QUESTION #5 FULL TEXT : Do you snore loudly (louder than talking or can be heard through closed doors)? Tobacco Use History Tobacco Use History - aviation technical systems specialist: Tobacco Use History - aviation technical systems specialist Tobacco Use Smoking Status Never smoker 02/28/24 08:45 Hx Tobacco Use No 02/28/24 08:45 Years Smoking Packs Smoked per Day Smoking Cessation Date was within the last 15 years Hx Smoking Cessation Date Hx Smoking Cessation Counseling Hematologic Medial History Hematologic Hx - aviation technical systems specialist: Hematologic Medical Hx - therapeutic program worker Hx of Blood Transfusion No 02/28/24 08:45 Hx of Transfusion in last 3 No 02/28/24 08:45 Months Date of Last Transfusion (if within last 3 months) Ever experience any problems No 02/28/24 08:45 with transfusion(s)? Specify any problems Hx of Preganancy in last 3 No 02/28/24 08:45 Months Nurse Filling Out Transfusion VCHRISTIN 02/28/24 08:45 & Questions: Date: 02/28/24 02/28/24 08:45 Time: 08:46 02/28/24 08:45 Patient unable to answer at this time (ie. confused, unrespo /Reproduction History /Reproductive History - aviation technical systems specialist: /Reproductive Hx- aviation technical systems specialist Hx Now Gestational Age (in weeks): EDC: Hx Hx Para Hx Section SAB Active Medications Active Medications: Current Medications Generic Name Dose Route Start Last Admin Trade Name Freq PRN Reason Stop Dose Admin Lactated Ringer's 1,000 mls @ 15 mls/hr 03/01/24 07:00 03/01/24 07:13 IV 15 mls/hr .Q48H MARLA Administration PFSH Medical History Wears glasses Post-menopausal Diabetes Kidney stones Dietary restriction Non-smoker CPAP (continuous positive airway pressure) dependence History of stress test History of echocardiogram Cardiology follow-up encounter Family hx of colon cancer Thyroid disorder Abnormal EKG Type 2 diabetes mellitus Essential hypertension Abnormal mammogram Left breast lump Hemorrhoids Sleep apnea Arthritis Home Medications ?Medication ?Instructions ?Recorded ?Last Taken ?Type aspirin 81 mg tablet,delayed 81 mg PO DAILY 07/15/18 02/25/24 History release cholecalciferol (vitamin D3) 25 5,000 unit PO DAILY 07/15/18 Unknown History mcg (1,000 unit) capsule flaxseed oil 1,000 mg capsule 1,000 mg PO DAILY 07/15/18 Unknown History ([place]-3 Flaxseed Oil) glucosamine sulfate 500 mg capsule 1,000 mg PO DAILY 11/15/19 Unknown History (Synovacin) losartan 50 mg tablet 50 mg PO DAILY 11/15/19 03/01/24 History mecobalamin (vitamin B12) 1,000 1,000 mcg PO DAILY 02/21/23 Unknown History mcg chewable tablet metformin 500 mg tablet 1,000 mg PO BID 02/21/23 Unknown History amoxicillin 500 mg capsule 2,000 mg PO UD prior to dental 02/28/24 03/01/24 History procedures Allergy/AdvReac Type Severity Reaction Status Date / Time montelukast (From Singulair) Allergy Severe Other Verified 03/01/24 07:06 thiopental (From Pentothal) Allergy Severe Anaphylaxis Verified 03/01/24 07:06 Family History Mother Arthritis Diabetes Heart disease Hypertension CVA (cerebral vascular accident) Grandmother Arthritis Colon cancer CVA (cerebral vascular accident) Thyroid disorder Sister Arthritis Breast cancer Diabetes Hypertension Thyroid disorder Grandfather Heart disease Uncle Colon cancer Surgical History Hx of dilation and curettage Hx of tubal ligation Hx of total knee replacement Hx of colonoscopy History of lateral meniscus repair of right knee History of lateral meniscus repair of left knee excisional left breast biopsy history thyroid lobectomy History of parathyroidectomy History of laparoscopic cholecystectomy Social History Smoking Status: Never smoker alcohol intake: current alcohol intake frequency: a few times a month substance use type: does not use caffeine: Yes Type: coffee Number of servings: 2 Review of Systems (Anesthesia) ROS Narrative System reviewed and no additional complaints, except as documented.
[2024-03-01 07:31] LABS: Bedside Glucose 169 mg/dL (74-106)
--- NOTE | 2024-03-01 08:15 | COLBX_PTH ---
PATIENT: VEE MAZARIEGOS LOC: EN U#:[id number] AGE/SX: 73/F ROOM: RE03/01/[address]: Dr. Zainab Jay MD : 1950 BED: DIS: 03/01/2024 SPEC #: [id number] RECD: 03/01/24 10:21 STATUS: YOSSI REVielka #: [id number] CARLENE: 03/01/24 08:[address]: Zainab Jay DEPT: SURGICAL PATHOLOGY RECD BY: Lucía Duval ENTERED: 03/01/24 12:08 SP TYPE: COLON BX OTHR DR: Dr. Elke Grewal MD Tissues: A - Rectum, NOS B - Rectum, NOS Procedures: Surgery Specimen Level IV HEADER OPERATION: Colonoscopy, polypectomy PRE-OP DIAGNOSIS: Encounter for screening for malignant neoplasm of colon TISSUE SUBMITTED: A- Rectal polyp, B- Rectal polyp #2 MICROSCOPIC DIAGNOSIS A. Rectal polyp, polypectomy: Tubular adenoma. B. Rectal polyp #2, polypectomy: Consistent with submucosal neuroma. ELMO. 03/02/2024 COMMENT B. Immunohistochemistry ([id number]) supports the above diagnosis. Case has been reviewed in consultation with Dr. Bender who concurs with the above diagnosis. IDC:AM MICROSCOPIC DESCRIPTION Slides are reviewed. GROSS DESCRIPTION A. Received in fixative is one container labeled with the patient's name and designated Rectal polyp. The specimen consists of a pink-red polyp measuring 0.7 x 0.7 x 0.5 cm. The presumed base is inked. The polyp is bisected and submitted entirely in one cassette. B. Received in fixative is one container labeled with the patient's name and designated Rectal polyp #2 biopsy. The specimen consists of two irregular fragments of light may soft tissue that measures 0.4 x 0.3 x 0.1 cm. The specimen is totally submitted in one cassette. 03/01/2024 TC:1 CPT:65589a6
--- NOTE | 2024-03-01 08:20 | H&P.OPEN ---
HPI - General General Date of Service: 03/01/24 HPI Narrative VEE MAZARIEGOS, is a 73 F who presents for screening colonoscopy. Patient last colonoscopy was in 2012 negative per patient. Patient has bowel movements daily denies any blood. Patient denies any chronic abdominal pain/nausea/vomiting/reflux. No immediate family history of colon cancer patient's paternal grandmother and maternal uncle had colon cancer in their 80s. [facility] Medical History Wears glasses Post-menopausal Diabetes Kidney stones Dietary restriction Non-smoker CPAP (continuous positive airway pressure) dependence History of stress test History of echocardiogram Cardiology follow-up encounter Family hx of colon cancer Thyroid disorder Abnormal EKG Type 2 diabetes mellitus Essential hypertension Abnormal mammogram Left breast lump Hemorrhoids Sleep apnea Arthritis Home Medications ?Medication ?Instructions ?Recorded ?Last Taken ?Type aspirin 81 mg tablet,delayed 81 mg PO DAILY 07/15/18 02/25/24 History release cholecalciferol (vitamin D3) 25 5,000 unit PO DAILY 07/15/18 Unknown History mcg (1,000 unit) capsule flaxseed oil 1,000 mg capsule 1,000 mg PO DAILY 07/15/18 Unknown History ([place]-3 Flaxseed Oil) glucosamine sulfate 500 mg capsule 1,000 mg PO DAILY 11/15/19 Unknown History (Synovacin) losartan 50 mg tablet 50 mg PO DAILY 11/15/19 03/01/24 History mecobalamin (vitamin B12) 1,000 1,000 mcg PO DAILY 02/21/23 Unknown History mcg chewable tablet metformin 500 mg tablet 1,000 mg PO BID 02/21/23 Unknown History amoxicillin 500 mg capsule 2,000 mg PO UD prior to dental 02/28/24 03/01/24 History procedures Allergy/AdvReac Type Severity Reaction Status Date / Time montelukast (From Singulair) Allergy Severe Other Verified 03/01/24 07:06 thiopental (From Pentothal) Allergy Severe Anaphylaxis Verified 03/01/24 07:06 Family History Mother Arthritis Diabetes Heart disease Hypertension CVA (cerebral vascular accident) Grandmother Arthritis Colon cancer CVA (cerebral vascular accident) Thyroid disorder Sister Arthritis Breast cancer Diabetes Hypertension Thyroid disorder Grandfather Heart disease Uncle Colon cancer Surgical History Hx of dilation and curettage Hx of tubal ligation Hx of total knee replacement Hx of colonoscopy History of lateral meniscus repair of right knee History of lateral meniscus repair of left knee excisional left breast biopsy history thyroid lobectomy History of parathyroidectomy History of laparoscopic cholecystectomy Social History Smoking Status: Never smoker alcohol intake: current alcohol intake frequency: a few times a month substance use type: does not use caffeine: Yes Type: coffee Number of servings: 2 Past Medical/Surgical History Planned Operation Planned Operative Procedure(s): COLONOSCOPY-OA S.O.S: No Previous Hospitalizations/Surgeries HX Hospitalizations: No HX of Surgeries: GALLBLADDER TUBAL LIGATON PARATHYROID PARTIAL LEFT LEFT THYROIDECTOMY PARTIAL COLONOSCOPY Any Problems With Anesthesia: Yes (SODIUM PENTOTHAL) You/Your Family Experience Fever (Hyperthermia) With Anes: No Cholinesterase deficiency: No Cardiovascular Hx Chest Pain within Last 2 months: No Hx of Irregular Heartbeat and/or Afib: No Hx Heart Attack: No Hx Congestive Heart Failure: No Hx Rheumatic Fever: No Hx Hypertension: Yes (CONTROLLED ON MED) Hx Internal Defibrillator: No Hx Pacemaker: No Hx Cardiac Catheterization: No Hx Cardiac Surgery/Stents/Etc.: No Hx Stress Test: No Hx Pain in Legs when Walking/Leg Cramps: No Respiratory Chronic Cough: No HX of Shortness of Breath: No Hoarseness: No Hx Chronic Obstructive Pulmonary Disease (COPD): No Hx Asthma: No Hx Emphysema: No Hx Sleep Apnea: Yes CPAP: Yes BIPAP: No Hx Respiratory Tract Infection/Cold (presently): No Result (for STOP score): Positive Hx Smoking: No Smoking Status: Never smoker Gastrointestinal Hx Gastrointestinal Disorders: No Hx Gastrointestinal Bleed: No Hx Ulcer: No Hx Hiatal Hernia: No Difficulty Chewing/Swallowing: No Special diet followed at home: Yes (ADA) Hx Unplanned Weight Loss of 20#: No HX Unplanned Weight Gain of 20#: No Neurological Hx Seizures: No HX Syncope/Blackout Spells/Unconsciousness: No Hx Transient Ischemic Attacks (TIA): No Hx Multiple Sclerosis: No Hx Parkinson's Disease: No Hx Head/Neck Injury: No Hx Headaches: No Hx Back Injury/Pain: No Recent Onset of Speech Difficulty: No Restless Legs: Yes (OCC) Does patient have nerve stimulator: No Blood Disorder Hx Leukemia: No Bleeding Tendencies: No Hx Deep Vein Thrombosis: No Hx High Cholesterol: No Blood Transmitted Disease: No Hx Hepatitis: No Hx Cirrhosis: No Hx Anemia: Yes (IN THE PAST) Hx Blood Disorders: Yes (LOW PLATELETS IN THE DISTANT PAST) Reproduction Is Patient Lactating: No Hx Hysterectomy: No Hx Tubal Ligation: Yes Are You Post Menopause: Yes Genitourinary Hx Renal Disease: No Musculoskeletal Hx Arthritis: Yes Hx Rheumatoid Arthritis: No Hx Gout: No Recent Onset of an Orthopedic Problem: No Endocrine Hx Diabetes: Yes (dx 2010) Insulin: No Thyroid Disease: Yes (THYROID NODULE REMOVED) Hx Steroid Therapy: No Psycho/Social Hx Substance Use: No Hx Alcohol Use: Yes (OCC) Hx Anxiety: No Hx Depression: No Mental Illness: No Hx Dementia: No Miscellaneous Hx Cancer: No Recent Exposure to Contagious Disease: No Hx of C-Diff: No Any Loose Teeth: No Allergies montelukast (From Singulair) Allergy (Severe, Verified 03/01/24 07:06) Other Severe Pustular Dermatitis thiopental (From Pentothal) Allergy (Severe, Verified 03/01/24 07:06) Anaphylaxis QUIT BREATHING Discharge Is Pt Admitted From a [facility], or a Skilled Nursing: No After D/C, Where Do you Plan to Go: Return Home From the PAT History Number of Risk Factors: 6 Vital Signs Vital Signs Vital Signs: 03/01/24 07:06 03/01/24 07:06 03/01/24 07:28 Temperature 98.1 F 98.1 F Temperature Source Temporal Pulse Rate 64 64 Respiratory Rate 16 16 Respiratory Pattern Normal Pulse Ox 100 100 Oxygen Delivery Method Room Air Weight Weight: 165 lb 5.547 oz Body Mass Index (BMI) 28.3 Physical Exam Const alert, oriented x3 and no apparent distress HEENT normocephalic and head/scalp atraumatic Resp normal respiratory effort Cardio regular rate GI soft to palpation and non-tender; Negative for non-distended Palpation: Negative for guarding Extremity no clubbing, cyanosis or edema Skin no rashes or lesions noted Neuro CN's II-XII intact bilaterally Psych mental status grossly normal Assessment & Plan Assessment/Plan (1) Encounter for screening for malignant neoplasm of colon: Surgery Risks - Colonoscopy I discussed with the patient the risks of the procedure: Yes Risks Include but are not Limited To: Risks include but are not limited to: Bleeding, perforation requiring further surgery, inability to complete colonoscopy requiring barium enema.
--- NOTE | 2024-03-01 08:56 | PCM.POST.ANE ---
Anesthesia: Postop Eval I Current Vital Signs Temperature: 97.7 F Pulse Rate: 72 Blood Pressure: 144/95 Respiratory Rate: 18 Pulse Ox: 99 Assessment Airway patent: Yes Spontaneous unlabored respirations: Yes nausea: No Vomiting: No Anesthesia Complication: No Fluid Hydration Crystalloid volume administer (ml): 500 Total IV fluid infused: 500 Progress Note Anesthesia document: Postop Eval 1 completed: Yes
--- NOTE | 2024-03-01 09:00 | OP.COLON_ITS ---
Patient Name: Rosalinda Plunkett Procedure Date: 03/01/2024 8:24 AM Date of : 1950 Age: 73 Procedure: Colonoscopy Indications: Screening for colorectal malignant neoplasm Providers: Zainab Jay MD Referring MD: Elke Grewal Medicines: Monitored Anesthesia Care Patient Profile: This is a 73 year old female. Last Colonoscopy: 10 years ago. Complications: No immediate complications. Procedure: Pre-Anesthesia Assessment: - Prior to the procedure, a History and Physical was performed, and patient medications and allergies were reviewed. The patient's tolerance of previous anesthesia was also reviewed. The risks and benefits of the procedure and the sedation options and risks were discussed with the patient. All questions were answered, and informed consent was obtained. Prior Anticoagulants: The patient has taken no anticoagulant or antiplatelet agents except for aspirin. ASA Grade Assessment: Per anesthesia. After reviewing the risks and benefits, the patient was deemed in satisfactory condition to undergo the procedure. After I obtained informed consent, the scope was passed under direct vision. Throughout the procedure, the patient's blood pressure, pulse, and oxygen saturations were monitored continuously. The colonoscope was introduced through the anus and advanced to the cecum, identified by appendiceal orifice and ileocecal valve. The colonoscopy was performed without difficulty. The patient tolerated the procedure well. The quality of the bowel preparation was good. Scope In: 8:33:45 AM Scope Withdrawal Time 0 hours 12 minutes 49 seconds Scope Out: 8:53:49 AM Total Procedure Duration Time 0 hours 20 minutes 4 seconds Findings: Non-bleeding internal hemorrhoids were found. The hemorrhoids were Grade I (internal hemorrhoids that do not prolapse). A 7 mm polyp was found in the rectum. The polyp was semi-pedunculated. The polyp was removed with a hot snare. Resection and retrieval were complete. A less than 5 mm polyp was found in the rectum. The polyp was sessile. The polyp was removed with a cold biopsy forceps. Resection and retrieval were complete. The exam was otherwise without abnormality. Impression: - Non-bleeding internal hemorrhoids. - One 7 mm polyp in the rectum, removed with a hot snare. Resected and retrieved. - One less than 5 mm polyp in the rectum, removed with a cold biopsy forceps. Resected and retrieved. - The examination was otherwise normal. Recommendation: - Discharge patient to home. - Resume previous diet. - Continue present medications. - Await pathology results. - Repeat colonoscopy in 3 - 5 years for surveillance based on pathology results. Procedure Code(s): --- Professional --- 89851, PT, Colonoscopy, flexible; with removal of tumor(s), polyp(s), or other lesion(s) by snare technique 46770, 59, Colonoscopy, flexible; with biopsy, single or multiple Diagnosis Code(s): --- Professional --- Z12.11, Encounter for screening for malignant neoplasm of colon K64.0, First degree hemorrhoids D12.8, Benign neoplasm of rectum CPT copyright 2021 [employer]. All rights reserved. The codes documented in this report are preliminary and upon topstitcher zigzag review may be revised to meet current compliance requirements. MD Zainab Peters MD 03/01/2024 8:59:46 AM This report has been signed electronically. Number of Addenda: 0 Note Initiated On: 03/01/2024 8:24 AM
--- NOTE | 2024-03-01 09:00 | OP.CCLET_ITS ---
03/01/2024 Elke Grewal [place] [id number] [address] Re : Colonoscopy procedure for Rosalinda Plunkett Dear Dr. Grewal This procedure was performed on Friday, March 01, 2024. My impressions and recommendations are as follows: Impressions : - Non-bleeding internal hemorrhoids. - One 7 mm polyp in the rectum, removed with a hot snare. Resected and retrieved. - One less than 5 mm polyp in the rectum, removed with a cold biopsy forceps. Resected and retrieved. - The examination was otherwise normal. Recommendations : - Discharge patient to home. - Resume previous diet. - Continue present medications. - Await pathology results. - Repeat colonoscopy in 3 - 5 years for surveillance based on pathology results. My findings are described in the full procedure note, which is enclosed. If I can be of further assistance, please feel free to contact me at Doctor phone number(s): , Work: . Sincerely, MD Zainab Peters MD 03/01/2024 8:59:46 AM This report has been signed electronically.
--- NOTE | 2024-03-01 09:18 | POSTOPAN2_ITS ---
Anesthesia Postop Eval I Sum Postop Eval Completion status Anesthesia document: Postop Eval 1 completed: Yes Anesthesia Postop Eval I Summary Anesthesia Postop Eval I Summary: Anesthesia Postop Eval I: Assessment Summary Airway patent Yes 03/01/24 08:56 WATCH [email or web address] Spontaneous unlabored Yes 03/01/24 08:56 WATCH [email or web address] respirations Mental status nausea No 03/01/24 08:56 WATCH [email or web address] Vomiting No 03/01/24 08:56 WATCH [email or web address] Anesthesia Postop Eval I: Fluid Summary Crystalloid volume administer 500 03/01/24 08:56 WATCH [email or web address] (ml) Colloids volume administered ( ml) Blood Product volume administered (ml) Total IV fluid infused 500 03/01/24 08:56 WATCH [email or web address] Anesthesia Postop Eval I: Summary Notes Anesthesia Complication No 03/01/24 08:56 WATCH [email or web address] Anesthesia Complication Comment: Post-operative progress note Anesthesia: Postop Eval II Evaluation Mental status: Awake Pain Level: 0 nausea: No Vomiting: No
--- NOTE | 2024-03-01 09:18 | PCM.POSTANE2 ---
Anesthesia Postop Eval I Sum Postop Eval Completion status Anesthesia document: Postop Eval 1 completed: Yes Anesthesia Postop Eval I Summary Anesthesia Postop Eval I Summary: Anesthesia Postop Eval I: Assessment Summary Airway patent Yes 03/01/24 08:56 FOLLOW UP SPECIALIST.CSIR Spontaneous unlabored Yes 03/01/24 08:56 FOLLOW UP SPECIALIST.CSIR respirations Mental status nausea No 03/01/24 08:56 FOLLOW UP SPECIALIST.CSIR Vomiting No 03/01/24 08:56 FOLLOW UP SPECIALIST.CSIR Anesthesia Postop Eval I: Fluid Summary Crystalloid volume administer 500 03/01/24 08:56 FOLLOW UP SPECIALIST.CSIR (ml) Colloids volume administered ( ml) Blood Product volume administered (ml) Total IV fluid infused 500 03/01/24 08:56 FOLLOW UP SPECIALIST.CSIR Anesthesia Postop Eval I: Summary Notes Anesthesia Complication No 03/01/24 08:56 FOLLOW UP SPECIALIST.CSIR Anesthesia Complication Comment: Post-operative progress note Anesthesia: Postop Eval II Evaluation Mental status: Awake Pain Level: 0 nausea: No Vomiting: No
== END 2024-03-01 09:45 | disposition home or self-care (01) ==
LOC: EN 06:52 → AC 06:54
PROVIDERS: PCP Family Medicine; Referring Provider Family Medicine; Visit Provider Surgery
PROC: 0DJD8ZZ Inspection of Lower Intestinal Tract, Via Natural or Artificial Opening Endoscopic (ICD-10-PCS; CPT 45378; principal; 2024-03-01 08:10)
DX: Z12.11 Encounter for screening for malignant neoplasm of colon (principal); E11.9 Type 2 diabetes mellitus without complications; Z90.49 Acquired absence of other specified parts of digestive tract; Z79.82 Long term (current) use of aspirin; Z79.84 Long term (current) use of oral hypoglycemic drugs; I10 Essential (primary) hypertension; Z79.899 Other long term (current) drug therapy; K64.0 First degree hemorrhoids; D12.8 Benign neoplasm of rectum; Z80.0 Family history of malignant neoplasm of digestive organs
CPT/HCPCS: 45385; 45380; 82962; 88305; 88341; 88342; J7120; J2405

== ENCOUNTER → 2024-04-06 | Outpatient (CLI) | payer MEDICARE, OTHER, SELFPAY ==
--- NOTE | 2024-04-06 12:07 | BI_ITS ---
MAMMOGRAPHY - BILATERAL SCREENING REASON FOR EXAM: Female, 73 years old. Routine annual screening examination. PERTINENT HISTORY: Sisters with breast cancer. Aunts with breast cancer. Prior left ultrasound-guided excisional breast biopsy. TECHNIQUE: Digital bilateral breast santiago (3D mammographic acquisition) in the CC and MLO projections. 2-D mediolateral oblique (MLO) and craniocaudad (CC) views of both breasts were obtained. CAD: Full Field Digital Mammography with Computer Added Detection was performed. COMPARISON: Comparison is made with prior study dated April 05, 2023 and March 19, 2022. FINDINGS: Breast Composition: There are scattered areas of fibroglandular density. There is a 7.8 mm x 6.4 mm well-defined nodule in the upper outer aspect of the left breast. This was demonstrated to be a small lymph node. No other significant abnormalities are identified. There has been no significant change since the prior study. BI/SCRN MAMM (CAD)W/SANTIAGO BILAT IMPRESSION: Stable bilateral screening mammogram. Yearly follow-up mammogram recommended. (A) ASSESSMENT CATEGORY: BIRADS Category 2: Benign. A letter regarding these results will be sent to the patient by the facility within 30 days. Approximately 10% of breast cancers are not detected by mammography. A normal mammogram should not delay biopsy of a clinically suspicious abnormality. [id number] Electronically Signed: Star Mccabe MD at 13:23 EDT ,
== END | disposition home or self-care (01) ==
LOC: OPBI 12:06
PROVIDERS: PCP Family Medicine; Referring Provider Family Medicine; Visit Provider Family Medicine
DX: Z12.31 Encounter for screening mammogram for malignant neoplasm of breast (principal)
CPT/HCPCS: 77063; 77067

== ENCOUNTER 2024-05-01 17:30 | Outpatient (RCR) | payer SELFPAY | END 2024-05-04 23:59 | LOC: NS 17:30 | PROVIDERS: PCP Family Medicine | DX: Z71.3 Dietary counseling and surveillance (principal) ==

== ENCOUNTER 2024-05-08 15:58 | Outpatient (RCR) | payer SELFPAY | END 2024-06-03 23:59 | LOC: NS 15:58 | PROVIDERS: PCP Family Medicine | DX: Z71.3 Dietary counseling and surveillance (principal) ==

== ENCOUNTER → 2024-07-07 | Outpatient (CLI) | payer MEDICARE, OTHER, SELFPAY ==
[2024-07-07 14:44] LABS: Absolute Neutrophil Count 3.6 X10^3/uL (2.0-7.7); Basophil# 0.05 X10^3/uL; Basophil% 0.7 % (0-1); Eosinophil# 0.19 X10^3/uL; Eosinophils% 2.8 % (0-5); Hematocrit 42.1 % (37-47); Hemoglobin 13.8 g/dL (12.0-15.0); Lymphocyte % 34.2 % (19-41); Mean Corp Hgb Conc 32.8 g/dL (32-36); Mean Corpuscular Hgb 27.6 pg (27.0-32.0); Mean Corpuscular Volume 84.2 fL (81-99); Mean Platelet Vol. 9.1 fl (6.2-12.0); Monocyte# 0.49 X10^3/uL; Monocyte% 7.3 % (0-10); NRBC Flagged by Analyzer 0 % (0-5); Neutrophil # 3.61 X10^3/uL (2.7-7.7); Neutrophil % 53.8 % (47-70); Platelet Count 323 K/mm3 (150-450); RBC Distribution Width CV 13.5 % (11.6-14.6); RBC Distribution Width SD 41.2 fl (35.1-43.9); White Blood Count 6.7 K/mm3 (4.4-11.0)
[2024-07-07 15:09] LABS: CRP 4.89 mg/L (0.0-3.0)
[2024-07-07 15:15] LABS: Erythrocyte Sedimentation Rate 13 mm/hr (0-30)
== END | disposition home or self-care (01) ==
LOC: LAB 14:05
PROVIDERS: PCP Family Medicine; Referring Provider Specialist; Visit Provider Specialist
DX: I10 Essential (primary) hypertension (principal); M24.662 Ankylosis, left knee; Z96.652 Presence of left artificial knee joint
CPT/HCPCS: 36415; 85025; 85652; 86140

== ENCOUNTER → 2024-08-07 | Outpatient (CLI) | payer MEDICARE, OTHER, SELFPAY ==
[2024-08-07 08:33] LABS: Absolute Lymphocyte Count 1.81 X10^3/uL (0.83-4.51); Absolute Neutrophil Count 4.4 X10^3/uL (2.0-7.7); Basophil# 0.05 X10^3/uL; Basophil% 0.7 % (0-1); Eosinophil# 0.27 X10^3/uL; Eosinophils% 3.8 % (0-5); Hematocrit 39.8 % (37-47); Hemoglobin 12.8 g/dL (12.0-15.0); Lymphocyte # 1.81 X10^3/ul (0.83-4.51); Lymphocyte % 25.5 % (19-41); Mean Corp Hgb Conc 32.2 g/dL (32-36); Mean Corpuscular Hgb 27.6 pg (27.0-32.0); Monocyte# 0.49 X10^3/uL; Monocyte% 6.9 % (0-10); NRBC Flagged by Analyzer 0 % (0-5); Neutrophil % 61.8 % (47-70); Platelet Count 389 K/mm3 (150-450); RBC Distribution Width CV 13.6 % (11.6-14.6); RBC Distribution Width SD 42.2 fl (35.1-43.9); Red Blood Count 4.63 M/mm3 (4.2-5.4); White Blood Count 7.1 K/mm3 (4.4-11.0)
[2024-08-07 09:09] LABS: Erythrocyte Sedimentation Rate 19 mm/hr (0-30)
== END | disposition home or self-care (01) ==
LOC: LAB 07:49
PROVIDERS: PCP Specialist; Referring Provider Specialist; Visit Provider Specialist
DX: I10 Essential (primary) hypertension (principal); M24.562 Contracture, left knee; Z96.652 Presence of left artificial knee joint
CPT/HCPCS: 36415; 85025; 85652; 86140

== ENCOUNTER → 2024-08-14 | Outpatient (CLI) | payer MEDICARE, OTHER, SELFPAY ==
[2024-08-14 14:45] LABS: Anion Gap 8 (5-15); BUN 15 mg/dL (7-18); BUN/Creat Ratio 15.4 RATIO (10-20); Calcium,Total 8.9 mg/dL (8.5-10.1); Chloride 105 mmol/L (98-107); Creatinine, Serum 0.97 mg/dL (0.55-1.02); EST Glomerular Filtration Rate 60 mL/min (>60); Est Glom Filt Rate - Afr Amer 72 mL/min (>60); Glucose 134 mg/dL (74-106); Potassium 3.8 mmol/L (3.5-5.1); Sodium Level 140 mmol/L (136-145)
== END | disposition home or self-care (01) ==
LOC: LAB 13:44
PROVIDERS: PCP Family Medicine; Referring Provider Specialist; Visit Provider Specialist
DX: T84.82XA Fibrosis due to internal orthopedic prosthetic devices, implants and grafts, initial encounter (principal); R60.0 Localized edema
CPT/HCPCS: 36415; 80048

== ENCOUNTER → 2024-10-24 | Outpatient (CLI) | payer MEDICARE, OTHER, SELFPAY ==
--- NOTE | 2024-10-24 09:05 | US_ITS ---
PROCEDURE: BREAST LIMITED UNILATERAL 10/24/2024 REASON FOR EXAM: SUBCUTANEOUS MASS TECHNIQUE: Targeted left breast ultrasound. COMPARISON: Prior mammogram dated April 06, 2024. FINDINGS: Left breast ultrasound was targeted to the lower outer quadrant of the left breast.. The palpable lump corresponds to a 7 mm x 8 mm by 6 mm hypoechoic nodular density just deep to the skin surface. This most likely represents a sebaceous cyst. US/Breast Limited Unilateral IMPRESSION: Impression: The palpable lump most likely corresponds to a 7 mm x 8 mm x 6 mm s ebaceous cyst. Birads: BI-RADS 2: BENIGN. RECOMMEND ANNUAL MAMMOGRAPHIC SCREENING. Reading Location: [facility]
== END | disposition home or self-care (01) ==
LOC: OPUS 08:50
PROVIDERS: PCP Family Medicine; Referring Provider Family Medicine; Visit Provider Family Medicine
DX: N60.82 Other benign mammary dysplasias of left breast (principal)
CPT/HCPCS: 76642

== ENCOUNTER → 2025-02-13 | Outpatient (CLI) | payer MEDICARE, OTHER, SELFPAY ==
[2025-02-13 17:14] LABS: Hematocrit 38.6 % (37-47); Hemoglobin 12.6 g/dL (12.0-15.0); Immature Granulocytes Count 0.030 X10^3/uL (0.0-0.0); Mean Corp Hgb Conc 32.6 g/dL (32-36); Mean Corpuscular Volume 85.6 fL (81-99); Mean Platelet Vol. 9.4 fl (6.2-12.0); NRBC Flagged by Analyzer 0 % (0-5); Platelet Count 351 K/mm3 (150-450); RBC Distribution Width CV 14.6 % (11.6-14.6); RBC Distribution Width SD 45.8 fl (35.1-43.9); Red Blood Count 4.51 M/mm3 (4.2-5.4); White Blood Count 7.1 K/mm3 (4.4-11.0)
[2025-02-13 17:39] LABS: AST(SGOT) 15 U/L (<=31); Alanine Aminotransfer ALT/SGPT 13 U/L (<=34); Albumin, Serum 4.3 g/dL (3.4-4.8); Alkaline Phosphatase 95 U/L (35-104); Anion Gap 13 (5-15); BUN 22 mg/dL (4-19); BUN/Creat Ratio 21.7 RATIO (10-20); Calcium,Total 9.4 mg/dL (7.6-11.0); Carbon Dioxide 24.5 mmol/L (21.0-32.0); Chloride 104 mmol/L (98-108); Globulin 2.7 g/dL (2.2-4.2); Glucose 102 mg/dL (70-99); Potassium 4.0 mmol/L (3.3-5.1)
== END | disposition home or self-care (01) ==
LOC: LAB 16:09
PROVIDERS: PCP Family Medicine; Referring Provider Student in an Organized Health Care Education/Training Program; Visit Provider Student in an Organized Health Care Education/Training Program
DX: Z01.818 Encounter for other preprocedural examination (principal); E11.9 Type 2 diabetes mellitus without complications
CPT/HCPCS: 36415; 80053; 83036; 85025

== ENCOUNTER → 2025-04-10 | Outpatient (CLI) | payer MEDICARE, OTHER, SELFPAY | END | disposition home or self-care (01) | LOC: OPBI 15:00 | PROVIDERS: PCP Family Medicine; Referring Provider Family Medicine; Visit Provider Family Medicine | DX: Z12.31 Encounter for screening mammogram for malignant neoplasm of breast (principal) | CPT/HCPCS: 77063; 77067 ==

== ENCOUNTER → 2025-04-12 | Outpatient (CLI) | payer MEDICARE, OTHER, SELFPAY | END | disposition home or self-care (01) | LOC: SL 19:51 | PROVIDERS: PCP Family Medicine; Referring Provider Nurse Practitioner Acute Care; Visit Provider Nurse Practitioner Acute Care | DX: G47.33 Obstructive sleep apnea (adult) (pediatric) (principal) | CPT/HCPCS: 95810 ==